=== PATIENT | male | born 1945 | race Caucasian/White ===

== ENCOUNTER → 2018-01-26 | Outpatient (CLI) | payer OTHER ==
[2018-01-26 11:39] LABS: Blood Urea Nitrogen 10 mg/dL (9-20)
--- NOTE | 2018-01-26 14:34 | CT ---
EXAMINATION TYPE: CT chest abdomen w con DATE OF EXAM: 01/26/2018 COMPARISON: NONE HISTORY: Pancreatic cancer. CT DLP: 1750 mGycm. Automated Exposure Control for Dose Reduction was Utilized. CONTRAST: CT scan of the thorax, abdomen and pelvis is performed with IV Contrast, patient injected with 125 mL of Isovue 370. FINDINGS: LUNGS: The lungs are grossly clear, there is no concerning parenchymal mass or nodule identified. Mi nimal dependent atelectatic changes are present. There is no pleural effusion or pneumothorax seen. The tracheobronchial tree is patent. MEDIASTINUM: There are no greater than 1 cm hilar or mediastinal lymph nodes. No pericardial effusi on is seen. OTHER: Aorta is not aneurysmal but shows atheromatous change.. LIVER/GB: There is pneumobilia present. Liver shows low attenuation possibly due to hepatic steatosis , the liver is enlarged. There is a biliary stent present distally within the common bile duct extend ing into the small bowel which is patent. There is ill-defined increased attenuation present along th e distribution of the proper and common bile ducts which is indeterminate. PANCREAS: Distal pancreas is atrophic, biliary stent is present centrally. There is heterogeneous den sity to the head of pancreas. SPLEEN: No significant abnormality is seen. ADRENALS: No significant abnormality is seen. KIDNEYS: No significant abnormality is seen. BOWEL: No significant abnormality is seen. LYMPH NODES: No greater than 1cm abdominal or pelvic lymph nodes are appreciated. OSSEOUS STRUCTURES: Degenerative disc changes in the lumbar spine. OTHER: No significant additional abnormality is seen. IMPRESSION: Findings compatible with patient's history of pancreatic carcinoma as described. Hepatome michael, hepatic steatosis. Ill-defined density at the level of the prashanth is indeterminate.
== END | disposition home or self-care (01) ==
LOC: RADCTMAIN 10:53
PROVIDERS: ATTEND Radiology Radiation Oncology
DX: Z08 Encounter for follow-up examination after completed treatment for malignant neoplasm (principal); K76.0 Fatty (change of) liver, not elsewhere classified; R16.0 Hepatomegaly, not elsewhere classified; Z85.07 Personal history of malignant neoplasm of pancreas
CPT/HCPCS: 82565; 84520; 71260; 74160; 36415; Q9967

== ENCOUNTER → 2018-03-05 | Outpatient (CLI) | payer OTHER ==
--- NOTE | 2018-03-05 13:30 | MR ---
MRI left hip HISTORY: Left foot drop, weakness, left hip pain Multiplanar multisequence imaging obtained through the pelvis with small [id number] imaging throug h the left hip Spermatic cord on the right appears somewhat more prominent and shows some associated fluid signal, t here is a right-sided hydrocele. Marginal spurring is present within the femoral heads. There is grade 3 to grade IV chondromalacia no manolo within the left hip. Geode formation present within the acetabular roof. No definite labral tear. Minimal joint fluid is present. Small cystic focus present in the right femoral head also represent a geode. Degenerative disc change s are noted in the lumbar spine. Some probable reactive marrow signal change present at the sacroiliac joints. Heterogeneous appearanc e of the prostate is noted. Trabeculated pattern within the urinary bladder could be due to chronic o utlet obstruction nor lack of distention. IMPRESSION: Osteoarthritis. Additional findings above.
--- NOTE | 2018-03-05 14:48 | MR ---
EXAMINATION TYPE: MR lumbar spine wo/w con DATE OF EXAM: 03/05/2018 COMPARISON: CT chest and abdomen January 26, 2018. HISTORY: Weakness and left foot drop per order. Back pain for years causing pain into right foot per patient. TECHNIQUE: Multiplanar, multisequence images of the lumbar spine is performed without and with IV contrast, util izing 7.5 mL intravenous Gadavist FINDINGS: Hypoplastic bilateral T12 ribs noted on comparison CT. Sagittal images of the lumbar spine show vertebral body heights to appear satisfactory. There is grade 1 retrolisthesis of L4 on L5. Ther e is multilevel disc desiccation. There is fairly moderate disc space narrowing most prominent poste riorly L4-L5 level. There is additional mild multilevel disc space narrowing. Sagittal images show mu ltifocal posterior disc herniations effacing anterior thecal sac throughout the lumbar spine with rel ative sparing of L5-S1 level. The conus medullaris is normal in position and signal ending at T12-L1 disc space. There is heterogeneous increased T1 and T2 signal in the visualized sacrum. No suspicious postcontrast enhancement is seen. There is fairly moderate multilevel anterior spurring redemonstrat ed. Axial images at the T12-L1 level shows mild to moderate broad disc bulge mildly effacing anterior the joel sac on axial image 28. Bilateral neural foramina are patent. Axial images at the L1-L2 level show mild broad disc bulge minimally effacing anterior thecal sac, bi lateral neural foramina are patent. Axial images at the L2-L3 level show mild to moderate broad disc bulge effacing anterior thecal sac o n axial image 18. There are mild facet degenerative changes seen bilaterally. Bilateral neural forami na are patent. Axial images at the L3-L4 level show broad-based posterior disc protrusion mildly effacing anterior t hecal sac. Bilateral neural foramina are patent. Axial images at L4-L5 level show moderate facet degenerative changes and ligament flavum hypertrophy along with spondylolisthesis and broad disc bulge. Most prominent spinal canal effacement or stenosis is seen at this level on axial image 8. There is moderate right and severe left neural foraminal hiwot rowing at this level identified. Severe left-sided neural foraminal narrowing is best seen sagittal i mage 3. Encroachment on exiting L4 nerve is felt present. Axial images at the L5-S1 level show advanced facet degenerative changes bilaterally. Spinal canal is small with prominence of surrounding epidural fat. There is mild to moderate left-sided neural yazmin inal narrowing and mild right-sided neural foraminal narrowing noted. No suspicious retroperitoneal findings are seen. IMPRESSION: Multilevel degenerative changes as detailed above. Attention to L4-L5 level where spondyl olisthesis and degenerative changes cause most prominent spinal canal effacement or stenosis and sev ere left-sided neural foraminal narrowing with suspected encroachment on left L4 nerve.
== END | disposition home or self-care (01) ==
LOC: RADMRIMAIN 10:12
PROVIDERS: ATTEND Internal Medicine Hematology & Oncology
DX: M43.16 Spondylolisthesis, lumbar region (principal); M47.817 Spondylosis without myelopathy or radiculopathy, lumbosacral region; M16.12 Unilateral primary osteoarthritis, left hip; M94.252 Chondromalacia, left hip
CPT/HCPCS: 72158; 73721; A9581

== ENCOUNTER → 2018-03-20 | Outpatient (CLI) | payer OTHER ==
--- NOTE | 2018-03-21 08:08 | ECHOF ---
Referral Reason:Activity Intolerance Z73.6 MEASUREMENTS -------- HEIGHT: 175.3 cm WEIGHT: 74.8 kg BP: IVSd: 1.0 cm (0.6 - 1.1) LVIDd: 3.4 cm (3.9 - 5.3) LVPWd: 1.6 cm (0.6 - 1.1) IVSs: 1.5 cm LVIDs: 1.7 cm LVPWs: 1.7 cm Ao Diam: 2.9 cm (2.0 - 3.7) AV Cusp: 1.7 cm (1.5 - 2.6) LA Diam: 3.8 cm (2.7 - 3.8) MV EXCURSION: 8.330 mm (> 18.000) MV EF SLOPE: 36 mm/s (70 - 150) EPSS: 1.0 cm MV E Emmanuel: 0.60 m/s MV DecT: 239 ms MV A Emmanuel: 0.91 m/s MV E/A Ratio: 0.66 RAP: 5.00 mmHg RVSP: 12.14 mmHg FINDINGS -------- Sinus rhythm. This was a technically good study. The left ventricular size is normal. There is mild concentric left ventricular hypertrophy. Overa ll left ventricular systolic function is normal with, an EF between 55 - 60 %. The right ventricle is normal in size. The left atrium is normal in size. The right atrium is normal in size. The aortic valve is trileaflet, and appears structurally normal. No aortic stenosis or regurgitation. The mitral valve leaflets are mildly thickened. There is trace mitral regurgitation. Trace tricuspid regurgitation present. Right ventricular systolic pressure is normal at < 35 mmHg. The right ventricular systolic pressure, as measured by Doppler, is 12.14mmHg. There is no pulmonic regurgitation present. The aortic root size is normal. There is no pericardial effusion. CONCLUSIONS -------- 1. Sinus rhythm. 2. This was a technically good study. 3. The left ventricular size is normal. 4. There is mild concentric left ventricular hypertrophy. 5. Overall left ventricular systolic function is normal with, an EF between 55 - 60 %. 6. The left atrium is normal in size. 7. The aortic valve is trileaflet, and appears structurally normal. No aortic stenosis or regurgitati on. 8. There is trace mitral regurgitation. 9. Trace tricuspid regurgitation present. 10. Right ventricular systolic pressure is normal at < 35 mmHg. 11. There is no pulmonic regurgitation present. 12. The aortic root size is normal. 13. There is no pericardial effusion. ROD FILLER: Antonia Vidales RDCS
== END | disposition home or self-care (01) ==
LOC: RADECHMAIN 12:58
PROVIDERS: ATTEND Internal Medicine Hematology & Oncology
DX: I51.7 Cardiomegaly (principal); Z73.6 Limitation of activities due to disability
CPT/HCPCS: 93306

== ENCOUNTER → 2018-04-01 | Outpatient (CLI) | payer OTHER ==
--- NOTE | 2018-04-02 17:54 | CT ---
EXAMINATION TYPE: CT ChestAbdPelvis w con DATE OF EXAM: 04/01/2018 INDICATION: Pancreatic neoplasm COMPARISON: 01/26/2018 CT DLP: 1031 mGycm CONTRAST: 100 mL Isovue-300. TECHNIQUE: Axial images at 5 mm thick sections. Reconstructed images in the coronal plane. Delayed images through the kidneys. FINDINGS: CT CHEST: Portion of the thyroid visualized is normal. No suspicious lung nodules or focal infiltrates are present. No enlarged mediastinal or hilar adenopathy is evident. The ascending aorta diameter at the level of the main pulmonary artery is 3.3 cm. The main pulmonary artery diameter at the bifurcation is 2.[address] ABDOMEN: Liver: There is moderate diminished signal throughout the liver compatible with a infiltration. Could be related to chemotherapy. There are some anterior preservation of normal density liver. There is w ithin the biliary tree. Spleen: Normal Pancreas: There is a stent extending from the duodenum through the head of the pancreas to the common bile duct. Pancreatic duct is prominent. The pancreas appears atrophic. There is some hypodensity ad jacent to the stent within the head of the pancreas. This may reflect underlying neoplasm. The appear ance suggests some increasing hypodensity within the uncinate process region compared to previous. Adrenal glands: The adrenal glands are normal. Gallbladder: Decompressed with some air present. Kidneys: No masses are evident. No hydronephrosis is present. No cysts are present. Delayed images were obtained through the kidneys, which remain unremarkable. Aorta: Vascular calcification is within the aorta. Inferior vena cava: Normal. CT PELVIS: Loops of bowel within the abdomen and pelvis are normal. Study is without oral contrast limiting evaluation. Appendix: Normal as visualized. Urinary bladder: Decompressed with some limitation Genitourinary structures: Prostate contains calcification. Osseous structures: There is a sclerotic lesion within the lateral right pubic ramus. Series 3 image 301B bone island. Degenerative changes are noted at the bilateral hips right more so than left. Facet degenerative changes are within the lower lumbar spine. IMPRESSIONS: 1. The pancreas may be slightly greater at the uncinate process and low density. Some extension of ne oplasm be considered. 2. Diminished density within the liver compared to the previous examination there may be some focal s paring present.
== END | disposition home or self-care (01) ==
LOC: RADCTMAIN 12:56
DX: C25.3 Malignant neoplasm of pancreatic duct (principal); Z88.8 Allergy status to other drugs, medicaments and biological substances; Z88.6 Allergy status to analgesic agent
CPT/HCPCS: 71260; 74177; Q9967

== ENCOUNTER → 2018-07-06 | Outpatient (CLI) | payer OTHER ==
--- NOTE | 2018-07-06 13:09 | FL ---
Modified barium swallow EXAMINATION TYPE: FL barium swallow w video DATE OF EXAM: 07/06/2018 COMPARISON: NONE HISTORY: Dysphagia. The patient was evaluated in the lateral projection during real-time fluoroscopy, during ingestion of barium mixed with solids and liquids. No aspiration or laryngeal penetration. See report from [facility]. 1 minute 11 seconds fluoroscopy time. No intraoperative images.
== END | disposition home or self-care (01) ==
LOC: RADFLMAIN 11:27
PROVIDERS: ATTEND Otolaryngology
DX: R13.10 Dysphagia, unspecified (principal); R49.0 Dysphonia
CPT/HCPCS: 74230

== ENCOUNTER → 2018-07-29 | Outpatient (CLI) | payer OTHER ==
--- NOTE | 2018-07-29 09:48 | XR ---
EXAMINATION TYPE: XR chest 2V DATE OF EXAM: 07/29/2018 COMPARISON: None HISTORY: 72-year-old male with shortness of breath TECHNIQUE: Frontal and lateral views FINDINGS: Heart upper limits of normal in size. Mild atherosclerotic arch calcifications with mild tortuosity o f the thoracic aorta. There is strandy atelectasis in the lower lungs. No consolidation or pleural ef fusion. IMPRESSION: Some strandy areas of atelectasis and a slightly tortuous thoracic aorta. No acute process seen.
== END | disposition home or self-care (01) ==
LOC: RADXRMAIN 09:25
PROVIDERS: ATTEND Internal Medicine Hematology & Oncology
DX: J98.11 Atelectasis (principal); I77.89 Other specified disorders of arteries and arterioles; C25.0 Malignant neoplasm of head of pancreas; G60.8 Other hereditary and idiopathic neuropathies; Z71.3 Dietary counseling and surveillance
CPT/HCPCS: 71046

== ENCOUNTER → 2018-07-30 | Outpatient (CLI) | payer OTHER ==
--- NOTE | 2018-07-30 11:48 | CT ---
EXAMINATION TYPE: CT sinus wo con DATE OF EXAM: 07/30/2018 COMPARISON: None HISTORY: congestion and frequent infections for 2-[address] DLP: 575 mGycm. Automated Exposure Control for Dose Reduction was Utilized. TECHNIQUE: CT scan of the sinuses is performed without contrast, axial images are obtained, coronal r eformatted images are also reviewed. FINDINGS: There is mild mucosal thickening involving the maxillary sinuses and ethmoid air cells. The re is no air-fluid level. Ostiomeatal complex patent bilaterally. There is a slight nasal septal deviation. Atherosclerotic change of the aorta.. Visualized portion of mastoid air cells show no abnormal opacification. The globes are intact bilate rally. IMPRESSION: 1. Findings are compatible with mild chronic sinusitis. 2. Slight nasal septal deviation
== END | disposition home or self-care (01) ==
LOC: RADCTMAIN 11:12
PROVIDERS: ATTEND Otolaryngology
DX: J34.2 Deviated nasal septum (principal); J32.9 Chronic sinusitis, unspecified
CPT/HCPCS: 70486

== ENCOUNTER → 2018-08-12 | Outpatient (CLI) | payer OTHER ==
--- NOTE | 2018-08-12 14:30 | US ---
EXAMINATION TYPE: US venous doppler duplex LE LT DATE OF EXAM: 08/12/2018 1:58 PM COMPARISON: NONE CLINICAL HISTORY: M79.662 R22.42 Pain swelling Left lower limb. Left ankle swelling. Patient states being on blood thinners. No hx of blood clots. No surgeries. On chemo- pancreatic cancer. SIDE PERFORMED: Left TECHNIQUE: The lower extremity deep venous system is examined utilizing real time linear array sonog charles with graded compression, doppler sonography and color-flow sonography. VESSELS IMAGED: External Iliac Vein (EIV) Common Femoral Vein Deep Femoral Vein Greater Saphenous Vein * Femoral Vein Popliteal Vein Small Saphenous Vein * Proximal Calf Veins (* superficial vessels) Left Leg: Appears POSITIVE for DVT in left CFV, nonoccluding with some visual internal echoes. Appe ars POSITIVE for SVT in GSV. IMPRESSION: 1. Focal thrombus within the proximal left common femoral vein compatible with deep venous thrombosis . 2. Note is made of superficial venous thrombosis within the left greater saphenous vein.
[2018-08-12 15:20] LABS: Blood Urea Nitrogen 8 mg/dL (9-20)
--- NOTE | 2018-08-12 16:35 | CT ---
EXAMINATION TYPE: CT angio chest DATE OF EXAM: 08/12/2018 COMPARISON: CT April 01, 2018 HISTORY: Shortness of breath. History of pancreatic cancer. CT DLP: 232.6 mGycm. Automated Exposure Control for Dose Reduction was Utilized. CONTRAST: CTA scan of the thorax is performed with IV Contrast, patient injected with 53ml mL of Isovue 370, pu lmonary embolism protocol. MIP Images are created on CT scanner and reviewed. FINDINGS: LUNGS: There are tiny bilateral pleural effusions. No pneumothorax is seen bilaterally. No suspiciou s nodules or masses are present. No suspicious consolidation is seen The tracheobronchial tree is pat ent. MEDIASTINUM: There is satisfactory enhancement of the pulmonary artery and its branches, there is no CT evidence for pulmonary embolism. There are no greater than 1 cm hilar or mediastinal lymph nodes. No cardiomegaly or pericardial effusion is seen. There is atherosclerotic and ectatic thoracic aor ta redemonstrated. OTHER: Liver is markedly hypodense consistent with diffuse fatty infiltration. Pneumobilia is redemon strated. Cholecystectomy clips are again seen. There are new surgical changes epigastric region noted . There is exaggerated thoracic kyphosis with multilevel spurring seen. IMPRESSION: No CT evidence for acute pulmonary embolism. New tiny bilateral pleural effusions without suspicious focal infiltrate.
--- NOTE | 2018-08-12 16:36 | US ---
EXAMINATION TYPE: US guide vascular access DATE OF EXAM: 08/12/2018 HISTORY: Needs IV access for diagnostic CTA, or shortness of breath, multiple failed intravenous acce ss attempts PROCEDURE: Initial failed attempt at ultrasound-guided venipuncture of the left basilic vein. Maximal barrier technique utilized. The skin overlying the left brachial vein was localized with ult rasound and the vein was noted to be compressible and patent by ultrasound and ultrasound image was o btained and submitted on patient's chart. Under direct ultrasound guidance a 20-gauge Angiocath was advanced into the vein and fixed in place. Catheter was aspirated and flushed with sterile saline. Hemostasis achieved. Catheter fixed in place. No immediate complication. IMPRESSION: Ultrasound-guided venipuncture, this procedure performed by the undersigned.
== END | disposition home or self-care (01) ==
LOC: RADUSWWP 13:24
PROVIDERS: ATTEND Internal Medicine Hematology & Oncology
DX: J90 Pleural effusion, not elsewhere classified (principal); I82.812 Embolism and thrombosis of superficial veins of left lower extremity; I82.412 Acute embolism and thrombosis of left femoral vein; R00.0 Tachycardia, unspecified
CPT/HCPCS: 82565; 84520; 76937; 93971; 71275; 36415; Q9967

== ENCOUNTER 2018-08-21 10:01 | Inpatient (IN) | payer OTHER, MEDICARE ==
[2018-08-21] MEDS ORDERED: SODIUM CHLORIDE 0.9% 1,000 ML IV STA (10:41)
--- NOTE | 2018-08-21 10:42 | ED ---
General Adult HPI - General Chief complaint: Recheck/Abnormal Lab/Rx Stated complaint: High BP/racing heart-sent by Dr. Velasco Source: patient Mode of arrival: wheelchair Limitations: no limitations - Related Data Home Medications Medication Instructions Recorded Confirmed Allopurinol [Zyloprim] 300 mg PO DAILY 08/21/18 08/21/18 Apixaban [Eliquis] 5 mg PO BID 08/21/18 08/21/18 Cefuroxime [Ceftin] 250 mg PO BID 08/21/18 08/21/18 Creon 10,000 E.C. 1 cap PO AC-SUPPER 08/21/18 08/21/18 Finasteride [Proscar] 5 mg PO DAILY 08/21/18 08/21/18 Gabapentin [Neurontin] 100 mg PO BID 08/21/18 08/21/18 Ibuprofen [Motrin] 600 mg PO TID PRN 08/21/18 08/21/18 Metoprolol Tartrate 25 mg PO BID 08/21/18 08/21/18 Pantoprazole [Protonix] 40 mg PO DAILY 08/21/18 08/21/18 Ranitidine HCl 150 mg PO HS 08/21/18 08/21/18 Sildenafil Citrate [Viagra] 100 mg PO ONCE 08/21/18 08/21/18 Terazosin [Hytrin] 6 mg PO HS 08/21/18 08/21/18 Allergies Allergy/AdvReac Type Severity Reaction Status Date / Time No Known Allergies Allergy Verified 08/21/18 10:45 Review of Systems ROS Statement: Those systems with pertinent positive or pertinent negative responses have been documented in the HPI. ROS Other: All systems not noted in ROS Statement are negative. Past Medical History Past Medical History: Cancer, Hypertension Additional Past Medical History / Comment(s): PANCREATIC CANCER History of Any Multi-Drug Resistant Organisms: None Reported Additional Past Surgical History / Comment(s): WHIPPLE PROCEDURE Past Psychological History: No Psychological Hx Reported Smoking Status: Never smoker Past Alcohol Use History: None Reported Past Drug Use History: None Reported General Exam Limitations: no limitations Course Vital Signs 08/21/18 08/21/18 08/21/18 10:18 10:43 11:00 Temperature 98.3 F Pulse Rate 118 H Respiratory 18 11 L Rate Blood Pressure 91/53 108/74 O2 Sat by Pulse 100 91 L 100 Oximetry 08/21/18 11:20 Temperature Pulse Rate 94 Respiratory 21 Rate Blood Pressure 116/64 O2 Sat by Pulse 100 Oximetry Medical Decision Making - Medical Decision Making Dictation was produced using [employer] dictation software. please excuse any grammatical, word or spelling errors. Chief Complaint: 72-year-old male with history of pancreatic cancer status post chemotherapy presents instruction from oncologist to the emergency department. History of Present Illness: Patient reports that he was told to come here from his oncologist office. He had completed chemotherapy last week. Patient had labs performed outpatient with concern for cervicitis/sepsis. Patient does not have any overt symptoms of infection this time. Patient also has been having low hemoglobin counts done outpatient. Patient reports that oncologist want to give him blood transfusion last week however he did not receive it. The ROS documented in this emergency department record has been reviewed and confirmed by me. Those systems with pertinent positive or negative responses have been documented in the HPI. All other systems are other negative and/or noncontributory. PHYSICAL EXAM: General Impression: Alert and oriented x3, not in acute distress, pale HEENT: Normocephalic atraumatic, extra-ocular movements intact, pupils equal and reactive to light bilaterally, mucous membranes dry Cardiovascular: Heart regular rate and rhythm, S1&S2 audible, no murmurs, rubs or gallops Chest: Lungs clear to auscultation bilaterally, no rhonchi, no wheeze, no rales Abdomen: Bowel sounds present, abdomen soft, non-tender, non-distended, no organomegaly Musculoskeletal: Pulses present and equal in all extremities, no peripheral edema Motor: Power 5/5 bilaterally, no focal deficits noted Neurological: CN II-XII grossly intact, no focal motor or sensory deficits noted Skin: Intact with no visualized rashes Psych: Normal affect and mood ED course: 72-year-old male presents discharged from oncologist come to the emergency department for SIRS/sepsis and low hemoglobin. Signs upon arrival shows heart rate of 118, blood pressure 91/53. Laboratory evaluation obtained. WBC of 0.9, hemoglobin of 6.3. Platelets of 63. This is consistent with pancytopenia. Coag panel unremarkable. Metabolic panel shows lactic acidosis of 3.1. No elevation of renal markers. Influenza negative. Chest x-ray unremarkable. Patient given 1 unit transfusion of red blood cells. Patient started on broad-spectrum antibiotics. Patient be admitted for further monitoring. Repeat vital signs were obtained with improvement after intravenous fluid administration. Patient stable for general medical floor. Urine studies are pending. EKG interpretation: Ventricular rate 150, sinus tachycardia, CO interval 140, Q 70, QTc 431. No CO prolongation, no QTC prolongation, no ST or T-wave changes noted. . Overall, this EKG is unremarkable - Lab Data Result diagrams: 08/21/18 11:10 08/21/18 11:10 Lab Results 08/21/18 08/21/18 08/21/18 Range/Units 10:51 11:10 11:10 WBC 0.9 L* (3.8-10.6) k/uL RBC 2.16 L (4.30-5.90) m/uL Hgb 6.3 L* (13.0-17.5) gm/dL Hct 20.0 L (39.0-53.0) % MCV 92.2 (80.0-100.0) fL MCH 29.0 (25.0-35.0) pg MCHC 31.4 (31.0-37.0) g/dL RDW 20.0 H (11.5-15.5) % Plt Count 63 L (150-450) k/uL Toxic Granulation Present Hypochromasia Moderate Poikilocytosis (manual Present Anisocytosis Moderate Macrocytosis Slight PT (9.0-12.0) sec INR (<1.2) Sodium 133 L (137-145) mmol/L Potassium 4.1 (3.5-5.1) mmol/L Chloride 106 (98-107) mmol/L Carbon Dioxide 20 L (22-30) mmol/L Anion Gap 7 mmol/L BUN 7 L (9-20) mg/dL Creatinine 0.50 L (0.66-1.25) mg/dL Est GFR (CKD-EPI)AfAm >90 (>60 ml/min/1.73 sqM) Est GFR (CKD-EPI)NonAf >90 (>60 ml/min/1.73 sqM) Glucose 130 H (74-99) mg/dL Plasma Lactic Acid Jori (0.7-2.0) mmol/L Calcium 7.1 L (8.4-10.2) mg/dL Magnesium 2.0 (1.6-2.3) mg/dL Troponin I (0.000-0.034) ng/mL Influenza Type A RNA Not Detected (Not Detectd) Influenza Type B (PCR) Not Detected (Not Detectd) 08/21/18 08/21/18 08/21/18 Range/Units 11:10 11:10 11:10 WBC (3.8-10.6) k/uL RBC (4.30-5.90) m/uL Hgb (13.0-17.5) gm/dL Hct (39.0-53.0) % MCV (80.0-100.0) fL MCH (25.0-35.0) pg MCHC (31.0-37.0) g/dL RDW (11.5-15.5) % Plt Count (150-450) k/uL Toxic Granulation Hypochromasia Poikilocytosis (manual Anisocytosis Macrocytosis PT 11.8 (9.0-12.0) sec INR 1.1 (<1.2) Sodium (137-145) mmol/L Potassium (3.5-5.1) mmol/L Chloride (98-107) mmol/L Carbon Dioxide (22-30) mmol/L Anion Gap mmol/L BUN (9-20) mg/dL Creatinine (0.66-1.25) mg/dL Est GFR (CKD-EPI)AfAm (>60 ml/min/1.73 sqM) Est GFR (CKD-EPI)NonAf (>60 ml/min/1.73 sqM) Glucose (74-99) mg/dL Plasma Lactic Acid Jori 3.1 H* (0.7-2.0) mmol/L Calcium (8.4-10.2) mg/dL Magnesium (1.6-2.3) mg/dL Troponin I <0.012 (0.000-0.034) ng/mL Influenza Type A RNA (Not Detectd) Influenza Type B (PCR) (Not Detectd) Disposition Clinical Impression: SIRS (systemic inflammatory response syndrome) Disposition: ADMITTED IP TO THIS HOSP Condition: Fair Referrals: [facility],Clinic [Primary Care Provider] - 1-2 days Decision Time: 13:19
[2018-08-21 11:53] LABS: Anion Gap 7 mmol/L; Blood Urea Nitrogen 7 mg/dL (9-20); Calcium 7.1 mg/dL (8.4-10.2); Carbon Dioxide 20 mmol/L (22-30); Chloride 106 mmol/L (98-107); Glucose 130 mg/dL (74-99); Potassium 4.1 mmol/L (3.5-5.1); Sodium 133 mmol/L (137-145)
[2018-08-21 12:02] LABS: INR 1.1 (<1.2); Prothrombin Time 11.8 sec (9.0-12.0)
--- NOTE | 2018-08-21 12:02 | XR ---
EXAMINATION TYPE: XR chest 2V DATE OF EXAM: 08/21/2018 COMPARISON: 07/29/2018 HISTORY: Shortness of breath TECHNIQUE: Frontal and lateral views of the chest are obtained. FINDINGS: Scattered senescent parenchymal changes noted. Hyperinflation compatible with COPD. No evidence for infiltrate. No evidence for atelectasis. Heart size is stable. Mediastinal structures are stable and grossly unremarkable. No evidence for hilar prominence. Degenerative changes dorsal spine. IMPRESSION: 1. No evidence for acute pulmonary disease.
[2018-08-21] MEDS ORDERED: SODIUM CHLORIDE 0.9% 500 ML IV STA (12:05)
[2018-08-21 12:08] LABS: Anisocytosis Moderate; Hypochromasia Moderate; MCHC 31.4 g/dL (31.0-37.0); MCV 92.2 fL (80.0-100.0); Macrocytosis Slight; Mean Platelet Volume 8.9; Platelet Count 63 k/uL (150-450); RBC 2.16 m/uL (4.30-5.90)
[2018-08-21] MEDS ORDERED: CEFEPIME 2 GM in SODIUM CHLORIDE 0.9% 50 ML IVPB STA (12:08)
[2018-08-21 12:17] LABS: HGB 6.3 gm/dL (13.0-17.5); WBC 0.9 k/uL (3.8-10.6)
[2018-08-21] MEDS ORDERED: VANCOMYCIN IV PER PHARMACY 1 EACH MISC MISCELLANE PRN (12:18)
[2018-08-21] MEDS ORDERED: VANCOMYCIN 1,500 MG in SODIUM CHLORIDE 0.9% 250 ML IVPB ONE (12:30)
[2018-08-21 13:03] LABS: Poikilocytosis (M) Present
[2018-08-21 13:04] LABS: Toxic Granulation Present
[2018-08-21] MEDS ORDERED: NALOXONE 0.4 MG/ML 1 ML VIAL IV PRN (13:15)
[2018-08-21] MEDS ORDERED: ACETAMINOPHEN TAB 325 MG TAB PO PRN (13:15)
[2018-08-21 14:12] LABS: Appearance,Urine Clear (Clear); Bilirubin,Urine Negative (Negative); Blood,Urine Negative (Negative); Color,Urine Yellow; Glucose,Urine (UA) Negative (Negative); Ketones,Urine Negative (Negative); Leukocyte Esterase,Urine Negative (Negative); Nitrite,Urine Negative (Negative); PH, Urine 6.5 (5.0-8.0); Protein,Urine Negative (Negative); Specific Gravity,Urine 1.004 (1.001-1.035); Urobilinogen,Urine <2.0 mg/dL (<2.0)
--- NOTE | 2018-08-21 16:05 | P.CONS ---
<Krista,Brandin - Last Filed: 08/21/18 17:43> Medications and Allergies Home Medications Medication Instructions Recorded Confirmed Type Allopurinol [Zyloprim] 300 mg PO DAILY 08/21/18 08/21/18 History Apixaban [Eliquis] 5 mg PO BID 08/21/18 08/21/18 History Cefuroxime [Ceftin] 250 mg PO BID 08/21/18 08/21/18 History Creon 10,000 E.C. 1 cap PO AC-SUPPER 08/21/18 08/21/18 History Finasteride [Proscar] 5 mg PO DAILY 08/21/18 08/21/18 History Gabapentin [Neurontin] 100 mg PO BID 08/21/18 08/21/18 History Ibuprofen [Motrin] 600 mg PO TID PRN 08/21/18 08/21/18 History Metoprolol Tartrate 25 mg PO BID 08/21/18 08/21/18 History Pantoprazole [Protonix] 40 mg PO DAILY 08/21/18 08/21/18 History Ranitidine HCl 150 mg PO HS 08/21/18 08/21/18 History Sildenafil Citrate [Viagra] 100 mg PO ONCE 08/21/18 08/21/18 History Terazosin [Hytrin] 6 mg PO HS 08/21/18 08/21/18 History Allergies Allergy/AdvReac Type Severity Reaction Status Date / Time No Known Allergies Allergy Verified 08/21/18 10:45 Physical Exam Vitals: Vital Signs Temp Pulse Resp BP Pulse Ox 08/21/18 17:00 98.6 F 97 18 138/66 100 08/21/18 16:14 98.3 F 96 17 148/72 100 08/21/18 15:44 98.0 F 94 17 133/72 100 08/21/18 15:34 98.4 F 97 18 131/67 100 08/21/18 15:13 98.2 F 101 H 18 126/67 100 08/21/18 14:30 93 17 131/69 100 08/21/18 14:00 96 16 140/64 100 08/21/18 13:30 94 18 140/64 100 08/21/18 13:00 93 15 140/59 100 08/21/18 12:30 87 17 114/61 100 08/21/18 12:00 95 16 114/62 100 08/21/18 11:30 98 16 112/60 100 08/21/18 11:20 94 21 116/64 100 08/21/18 11:00 11 L 108/74 100 08/21/18 10:43 91 L 08/21/18 10:18 98.3 F 118 H 18 91/53 100 Intake and Output 08/21/18 08/21/18 08/21/18 06:59 14:59 22:59 Intake Total 0 Balance 0 Intake: Blood Product 0 Rc As-1 Unit 0 [id number] Other: Weight 61.462 kg Results CBC & Chem 7: 08/21/18 11:10 08/21/18 11:10 Labs: Abnormal Lab Results - Last 24 Hours (Table) 08/21/18 08/21/18 08/21/18 Range/Units 11:10 11:10 11:10 WBC 0.9 L* (3.8-10.6) k/uL RBC 2.16 L (4.30-5.90) m/uL Hgb 6.3 L* (13.0-17.5) gm/dL Hct 20.0 L (39.0-53.0) % RDW 20.0 H (11.5-15.5) % Plt Count 63 L (150-450) k/uL Sodium 133 L (137-145) mmol/L Carbon Dioxide 20 L (22-30) mmol/L BUN 7 L (9-20) mg/dL Creatinine 0.50 L (0.66-1.25) mg/dL Glucose 130 H (74-99) mg/dL Plasma Lactic Acid Jori 3.1 H* (0.7-2.0) mmol/L Calcium 7.1 L (8.4-10.2) mg/dL Crossmatch 08/21/18 Range/Units 11:10 WBC (3.8-10.6) k/uL RBC (4.30-5.90) m/uL Hgb (13.0-17.5) gm/dL Hct (39.0-53.0) % RDW (11.5-15.5) % Plt Count (150-450) k/uL Sodium (137-145) mmol/L Carbon Dioxide (22-30) mmol/L BUN (9-20) mg/dL Creatinine (0.66-1.25) mg/dL Glucose (74-99) mg/dL Plasma Lactic Acid Jori (0.7-2.0) mmol/L Calcium (8.4-10.2) mg/dL Crossmatch See Detail <Harleen Blackmon - Last Filed: 08/21/18 18:37> History of Present Illness - Reason for Consult Consult date: 08/21/18 Pancreatic Cancer Requesting physician: Braden Peace - Chief Complaint Sirs/R/O Sepsis - History of Present Illness Patient is a pleasant male who is well known to practice, status post treatment for his pancreatic Carcinoma, cycle 6 abraxane and Gemzar on 08/18/18. He did not receive GCSF. He was diagnosed in August 2017 with Pancreatic Carcinoma and started treatment with Chemotherapy in October. After 3 cycles, he went on to be treated with concurrent radiation and xeloda. He completed that in February of 2018. He then went on to have Surgery at [facility] on 04/28/18, then proceeded with three adjuvant cycles of chemo abraxane and gemzar completed on . On August 12, 2018 he was seen in office with complaints of leg pain and swelling, a lower extremity doppler was completed and revealed DVT. He was sent home with Treatment dosing of Eliquis. The patient was seen in the office on 08/21/18 for a routine visit. He had been complaining of progressive weakness since his chemotherapy. Oral intake had been markedly diminished, especially over the past 2-3 days. He had been having loose bowel movements intermittently. He stated that he felt chilled, but had not noted any definite subjective fevers. No obvious bleeding noted. In the office the patient was found to have SIRS, with heart rate in the 120s, systolic blood pressure in the 80s, along with marked pancytopenia with white cells 1.1, hemoglobin 6.4, and platelets 62. He was therefore sent in to the emergency room, and was admitted for further management, with consult placed. The patient did not receive any Neulasta after his last chemotherapy Review of Systems A 14 point review of systems assessed and completed and all neg except hpi Constitutional: Reports poor appetite, Reports weakness, Reports weight loss Eyes: denies blurred vision, denies pain Ears: deny: decreased hearing, ear discharge, earache, tinnitus Ears, nose, mouth and throat: Denies headache, Denies sore throat Cardiovascular: Reports dyspnea on exertion, Reports rapid heart beat Respiratory: Reports dyspnea Gastrointestinal: Reports diarrhea, Reports loss of appetite Genitourinary: Reports as per HPI Musculoskeletal: Reports muscle weakness Integumentary: Denies pruritus, Denies rash Neurological: Reports weakness Psychiatric: Denies anxiety, Denies depression Endocrine: Reports fatigue, Reports weight change Hematologic/Lymphatic: Reports as per HPI Past Medical History Past Medical History: Cancer, Deep Vein Thrombosis (DVT), Hypertension Additional Past Medical History / Comment(s): PANCREATIC CANCER-most recent chemo tx was 08-18-18,past prostate cancer 12 years ago,squamous cell skin ca ( sx) 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) pt stated "does'nt have gerd was put on rx as preventative" History of Any Multi-Drug Resistant Organisms: None Reported Additional Past Surgical History / Comment(s): WHIPPLE PROCEDURE, 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 Past Anesthesia/Blood Transfusion Reactions: No Reported Reaction Additional Past Anesthesia/Blood Transfusion Reaction / Comm: pt stated has never received any blood transfusion in past Smoking Status: Never smoker - Past Family History Mother Family Medical History: Diabetes Mellitus Additional Family Medical History / Comment(s): gout Father Additional Family Medical History / Comment(s): had TB Physical Exam Vitals: Vital Signs Temp Pulse Resp BP Pulse Ox 08/21/18 15:13 98.2 F 101 H 18 126/67 100 08/21/18 11:20 94 21 116/64 100 08/21/18 11:00 11 L 108/74 100 08/21/18 10:43 91 L 08/21/18 10:18 98.3 F 118 H 18 91/53 100 Intake and Output 08/21/18 08/21/18 08/21/18 06:59 14:59 22:59 Other: Weight 61.462 kg Gen: Alert and oriented x3 Neck Supple, trachea midline no lymphadenopathy Lungs CTA bilateral, no increased effort Heart: Tachy, Regular Abdomen S/ND Ext: Mild Swelling. - Constitutional General appearance: mild distress - EENT Eyes: EOMI, PERRLA ENT: hearing grossly normal, normal oropharynx - Neck Neck: no lymphadenopathy Thyroid: bilateral: normal size - Respiratory Respiratory: bilateral: CTA - Cardiovascular Tachycardia Rhythm: regular Heart sounds: normal: S1, S2 - Gastrointestinal General gastrointestinal: normal bowel sounds, soft - Integumentary Integumentary: normal - Neurologic Neurologic: CNII-XII intact - Musculoskeletal Musculoskeletal: generalized weakness, strength equal bilaterally - Psychiatric Psychiatric: A&O x's 3, appropriate affect Results CBC & Chem 7: 08/21/18 11:10 08/21/18 11:10 Labs: Abnormal Lab Results - Last 24 Hours (Table) 08/21/18 08/21/18 08/21/18 Range/Units 11:10 11:10 11:10 WBC 0.9 L* (3.8-10.6) k/uL RBC 2.16 L (4.30-5.90) m/uL Hgb 6.3 L* (13.0-17.5) gm/dL Hct 20.0 L (39.0-53.0) % RDW 20.0 H (11.5-15.5) % Plt Count 63 L (150-450) k/uL Sodium 133 L (137-145) mmol/L Carbon Dioxide 20 L (22-30) mmol/L BUN 7 L (9-20) mg/dL Creatinine 0.50 L (0.66-1.25) mg/dL Glucose 130 H (74-99) mg/dL Plasma Lactic Acid Jori 3.1 H* (0.7-2.0) mmol/L Calcium 7.1 L (8.4-10.2) mg/dL Crossmatch 08/21/18 Range/Units 11:10 WBC (3.8-10.6) k/uL RBC (4.30-5.90) m/uL Hgb (13.0-17.5) gm/dL Hct (39.0-53.0) % RDW (11.5-15.5) % Plt Count (150-450) k/uL Sodium (137-145) mmol/L Carbon Dioxide (22-30) mmol/L BUN (9-20) mg/dL Creatinine (0.66-1.25) mg/dL Glucose (74-99) mg/dL Plasma Lactic Acid Jori (0.7-2.0) mmol/L Calcium (8.4-10.2) mg/dL Crossmatch See Detail Chest x-ray: report reviewed Assessment and Plan (1) SIRS (systemic inflammatory response syndrome) Narrative/Plan: The patient is presenting with SIRS, with tachycardia, hypotension, and increased respiratory rate. Given his pancytopenia and low WBC, the main concern is for underlying infection causing sepsis. The patient was therefore sent him immediately to the emergency room and the case discussed in detail with the ER physician. He does not have any localizing signs for infection. He did have some upper respiratory symptoms as an outpatient and was on oral antibiotics. These have partially improved. The patient has thus been placed on broad-spectrum antibiotics with vancomycin and cefepime. Cultures have been ordered. Chest x-ray is negative so far. He is also receiving fluid resuscitation. Continue to monitor closely with the adjustment in care as needed Current Visit: Yes Status: Acute Code(s): R65.10 - SIRS OF NON-INFECTIOUS ORIGIN W/O ACUTE ORGAN DYSFUNCTION SNOMED Code(s): 554848599 (2) Pancytopenia due to antineoplastic chemotherapy Narrative/Plan: The patient is presenting with marked pancytopenia, which is much more severe than with prior treatments. This is likely due to the cumulative affect of chemotherapy. His last chemotherapy was on 08/18/18. He will receive 1 unit of blood. Filgrastim has been started. Continue to monitor, and transfuse to keep hemoglobin greater than 7, and platelets greater than 10,000 unless actively bleeding Current Visit: Yes Status: Acute Code(s): D61.810 - ANTINEOPLASTIC CHEMOTHERAPY INDUCED PANCYTOPENIA; T45.1X5A - ADVERSE EFFECT OF ANTINEOPLASTIC AND IMMUNOSUP DRUGS, INIT SNOMED Code(s): 354974968904089 (3) Deep vein thrombosis Narrative/Plan: This was a recent diagnosis and the patient is on Eliquis. There has been a significant drop in his hemoglobin, but this is very unlikely to be due to blood loss. Given drop and other counts this most likely is due to chemotherapy effect. Therefore it is okay to continue anticoagulation as long as the platelet count is above 50,000 Current Visit: Yes Status: Acute Code(s): I82.409 - ACUTE EMBOLISM AND THOMBOS UNSP DEEP VN UNSP LOWER EXTREMITY SNOMED Code(s): 970282290 (4) Cancer of pancreas Narrative/Plan: The patient is status post definitive therapy with neoadjuvant chemotherapy, chemoradiation, surgery and then additional adjuvant chemotherapy. He will be placed on surveillance, after resolution of his acute problems. Current Visit: Yes Status: Acute Code(s): C25.9 - MALIGNANT NEOPLASM OF PANCREAS, UNSPECIFIED SNOMED Code(s): 006363548 Plan: Assessment and Recommendations: 1. Pancytopenia Secondary to recent Chemotherapy: Normocytic Anemia: Hemoglobin 6.3: - He was recently started on eliquis for new DVT LE. This is currently on hold with anemia of 6.3 - Check Iron Studies and confirm no blood loss anemia - Transfuse One unit of PRBC today Thrombocytopenia: Plt 63 - In a safe range as above 50K and as long as no active signs of bleeding ok to restart anticoagulation, may restart with heparin drip and monitor for 24 hours to ensure platlets and hemoglobin to not further drop. Leukopenia - - He also has tachycardia therefore SIRS 2/4 full francis culture work-up - Vancomycin and cefepime initiated - Await final cultures and I have initiated Zarxio while inpatient as last chemotherapy on 08/18/18 2. Pancreatic Adenocarcinoma: Status Post Chemotherapy on 08/18/18 - Diagnosed in August 2017, underwent chemotherapy 3 cycles abraxane and gemzar, then further josesito-adjuvant therapy with concurrent xeloda and radiation, then surgery with clear resection and margins, then adjuvant treatment with three more cycles of gemzar and abraxane. Tolerated fairly well 3. SIRS Criteria 2/4 - As noted above Plan: Discussed in detail with Dr. Elizondo, will await pending labs and monitor. Physician attestation: I have completed the fourth of history and physical dictation and agree with the above dictation by Harleen Blackmon dictated as a scribe
[2018-08-21] MEDS: SODIUM CHLORIDE 0.9% 1,000 ML IV SCH (16:11)
[2018-08-21 18:35] LABS: Reticulocyte % 0.7 % (0.5-2.0)
[2018-08-21] MEDS: FILGRASTIM-SNDZ 480 MCG/0.8 ML SYRINGE SQ SCH (21:48)
[2018-08-21 22:49] LABS: Iron Saturation 60.93 (15.00-50.00)
--- NOTE | 2018-08-21 23:41 | P.HPIM ---
History of Present Illness H&P Date: 08/21/18 Chief Complaint: Pancytopenia and possible sepsis Patient is a 78-year-old male with a known history of pancreatic cancer with recent chemotherapy on 08/18/[address] Velasco's office due to concern for possible infection and also pancytopenia. Patient was initially diagnosed with pancreatic cancer in August 2017. Patient was seen in the clinic on with leg pain and swelling and was diagnosed with left lower extremity DVT and is currently on anticoagulation. Patient went to clinic today for follow-up and was complaining of generalized weakness. Patient was found to have tachycardic tachypneic and was also having subjective fevers. He was also having intermittent loose bowels. Patient was sent to Hospital for possible sepsis and pancytopenia secondary to chemotherapy. WBC 0.9 and hemoglobin 6.3 platelets 63,000 and lactic acid 3.2 on admission Review of Systems Constitutional: Patient does have subjective fevers and chills. Patient does have generalized weakness. Abdomen: Patient denied nausea vomiting and diarrhea and abdominal pain. Cardiovascular: Patient denies any chest pain or short of breath no palpitations. Respiratory: patient denied any cough is from production. No shortness of breath Neurologic: Patient denied any numbness or tingling headache. Musculoskeletal: Patient denies any complaints of joint swelling or deformity. Skin: No rash. No petechia or purpura. Psychiatric: Negative Endocrine: No heat or cold intolerance. No recent weight gain. Genitourinary: No dysuria or hematuria. 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 Past Anesthesia/Blood Transfusion Reactions: No Reported Reaction Additional Past Anesthesia/Blood Transfusion Reaction / Comment(s): pt stated has never received any blood transfusion in past Smoking Status: Never smoker - Past Family History Mother Family Medical History: Diabetes Mellitus Additional Family Medical History / Comment(s): gout Father Additional Family Medical History / Comment(s): had TB Medications and Allergies Home Medications Medication Instructions Recorded Confirmed Type Allopurinol [Zyloprim] 300 mg PO DAILY 08/21/18 08/21/18 History Apixaban [Eliquis] 5 mg PO BID 08/21/18 08/21/18 History Cefuroxime [Ceftin] 250 mg PO BID 08/21/18 08/21/18 History Creon 10,000 E.C. 1 cap PO AC-SUPPER 08/21/18 08/21/18 History Finasteride [Proscar] 5 mg PO DAILY 08/21/18 08/21/18 History Gabapentin [Neurontin] 100 mg PO BID 08/21/18 08/21/18 History Ibuprofen [Motrin] 600 mg PO TID PRN 08/21/18 08/21/18 History Metoprolol Tartrate 25 mg PO BID 08/21/18 08/21/18 History Pantoprazole [Protonix] 40 mg PO DAILY 08/21/18 08/21/18 History Ranitidine HCl 150 mg PO HS 08/21/18 08/21/18 History Sildenafil Citrate [Viagra] 100 mg PO ONCE 08/21/18 08/21/18 History Terazosin [Hytrin] 6 mg PO HS 08/21/18 08/21/18 History Allergies Allergy/AdvReac Type Severity Reaction Status Date / Time No Known Allergies Allergy Verified 08/21/18 10:45 Physical Exam Vitals: Vital Signs Temp Pulse Resp BP Pulse Ox 08/21/18 15:13 98.2 F 101 H 18 126/67 100 08/21/18 11:20 94 21 116/64 100 08/21/18 11:00 11 L 108/74 100 08/21/18 10:43 91 L 08/21/18 10:18 98.3 F 118 H 18 91/53 100 Intake and Output 08/21/18 08/21/18 08/21/18 06:59 14:59 22:59 Other: Weight 61.462 kg PHYSICAL EXAMINATION: Patient is lying in the bed comfortably, no acute distress, awake alert and oriented.. HEENT: Normocephalic. Neck is supple. Pupils reactive. Nostrils clear. Oral cavity is moist. Ears reveal no drainage. Neck reveals no JVD, carotid bruits, or thyromegaly. CHEST EXAMINATION: Trachea is central. Symmetrical expansion. Lung diane clear to auscultation and percussion. CARDIAC: Normal S1, S2 with no gallops. No murmurs ABDOMEN: Soft. Bowel sounds normal. No organomegaly. No abdominal bruits. Extremities: reveal no edema. No clubbing or cyanosis Neurologically awake, alert, oriented x3 with well-coordinated movements. No focal deficits noted Skin: No rash or skin lesions. Psychiatric: Coperative. Nonsuicidal Musculoskeletal: No joint swelling or deformity. Normal range of motion. Results CBC & Chem 7: 08/21/18 11:10 08/21/18 11:10 Labs: Abnormal Lab Results - Last 24 Hours (Table) 08/21/18 08/21/18 08/21/18 Range/Units 11:10 11:10 11:10 WBC 0.9 L* (3.8-10.6) k/uL RBC 2.16 L (4.30-5.90) m/uL Hgb 6.3 L* (13.0-17.5) gm/dL Hct 20.0 L (39.0-53.0) % RDW 20.0 H (11.5-15.5) % Plt Count 63 L (150-450) k/uL Sodium 133 L (137-145) mmol/L Carbon Dioxide 20 L (22-30) mmol/L BUN 7 L (9-20) mg/dL Creatinine 0.50 L (0.66-1.25) mg/dL Glucose 130 H (74-99) mg/dL Plasma Lactic Acid Jori 3.1 H* (0.7-2.0) mmol/L Calcium 7.1 L (8.4-10.2) mg/dL Crossmatch 08/21/18 Range/Units 11:10 WBC (3.8-10.6) k/uL RBC (4.30-5.90) m/uL Hgb (13.0-17.5) gm/dL Hct (39.0-53.0) % RDW (11.5-15.5) % Plt Count (150-450) k/uL Sodium (137-145) mmol/L Carbon Dioxide (22-30) mmol/L BUN (9-20) mg/dL Creatinine (0.66-1.25) mg/dL Glucose (74-99) mg/dL Plasma Lactic Acid Jori (0.7-2.0) mmol/L Calcium (8.4-10.2) mg/dL Crossmatch See Detail Assessment and Plan Assessment: Neutropenic fever SIRS Left lower extremity DVT diagnosed on 08/12/2018. Currently on anticoagulation. Pancytopenia secondary to recent chemotherapy on 08/18/2018 Anemia with hemoglobin 6.3. Patient was transferred with 1 unit PRBC on 2018 Neutropenia and thrombocytopenia Pancreatic a dull carcinoma status post recent chemotherapy DVT prophylaxis. Patient is already on full and accommodation Plan: Patient will be continued on broad-spectrum antibiotics in the form of vancomycin and cefepime. Continue with IV hydration. Monitor CBC. Follow blood culture reports. Stool for C. diff toxin will be sent. Continue to follow closely. Oncology is on board. Further recommendations based on the clinical course. Time with Patient: Greater than 30
[2018-08-22] MEDS: VANCOMYCIN 1,500 MG in SODIUM CHLORIDE 0.9% 250 ML IVPB SCH ×3 (00:53→23:54)
[2018-08-22] MEDS: CEFEPIME 1 GM in SODIUM CHLORIDE 0.9% 50 ML IVPB SCH ×2 (03:03→21:39)
[2018-08-22] MEDS: APIXABAN 5 MG TAB PO SCH ×2 (07:44→21:40)
[2018-08-22] MEDS: GABAPENTIN 100 MG CAP PO SCH ×2 (07:44→21:40)
[2018-08-22] MEDS: PANTOPRAZOLE 40 MG TABLET PO SCH (07:44)
[2018-08-22] MEDS: ALLOPURINOL 300 MG TAB PO SCH (07:44)
[2018-08-22] MEDS: METOPROLOL TARTRATE 25 MG TAB PO SCH ×2 (07:44→21:40)
[2018-08-22] MEDS: FINASTERIDE 5 MG TAB PO SCH (07:53)
[2018-08-22] MEDS: FILGRASTIM-SNDZ 480 MCG/0.8 ML SYRINGE SQ SCH (21:39)
[2018-08-22] MEDS: LIPASE 5,000/PROTEASE 17,000/AMYLASE 24,000 PO SCH (21:39)
[2018-08-22] MEDS: SODIUM CHLORIDE 0.9% 1,000 ML IV SCH ×2 (21:39→23:53)
[2018-08-22] MEDS: DOXAZOSIN 4 MG TAB PO SCH (21:40)
--- NOTE | 2018-08-22 23:36 | P.PN ---
Subjective Progress Note Date: 08/22/18 (Seen this am, late entry due to EMR) Principal diagnosis: SIRS Feeling tired otherwise ok, Started with diarrhea today Objective - Vital Signs Vital signs: Vital Signs Temp 98.4 F 08/22/18 21:00 Pulse 107 H 08/22/18 21:00 Resp 16 08/22/18 21:00 BP 116/53 08/22/18 21:00 Pulse Ox 98 08/22/18 21:00 Intake & Output 08/22/18 08/22/18 08/23/18 06:59 18:59 06:59 Intake Total 250 720 Output Total 2 2 Balance 248 -2 720 Intake: Intake, IV Titration 250 300 Amount Sodium Chloride 0.9% 1, 300 000 ml @ 75 mls/hr IV . [id number] EMILY Rx#:[id number] Vancomycin 1,500 mg In 250 Sodium Chloride 0.9% 250 ml @ 125 mls/hr IVPB Q12H EMILY Rx#:[id number] Oral 420 Output: Urine 2 2 Other: Voiding Method Toilet Toilet # Voids 2 2 2 # Bowel Movements 2 - Labs CBC & Chem 7: 08/23/18 09:51 08/23/18 09:51 Labs: Microbiology - Last 24 Hours (Table) 08/21/18 11:10 Blood Culture - Preliminary Blood No Growth after 24 hours Assessment and Plan (1) SIRS (systemic inflammatory response syndrome) Current Visit: Yes Status: Acute Code(s): R65.10 - SIRS OF NON-INFECTIOUS ORIGIN W/O ACUTE ORGAN DYSFUNCTION SNOMED Code(s): 069485826 (2) Pancytopenia due to antineoplastic chemotherapy Current Visit: Yes Status: Acute Code(s): D61.810 - ANTINEOPLASTIC CHEMOTHERAPY INDUCED PANCYTOPENIA; T45.1X5A - ADVERSE EFFECT OF ANTINEOPLASTIC AND IMMUNOSUP DRUGS, INIT SNOMED Code(s): 798455109693087 (3) Deep vein thrombosis Current Visit: Yes Status: Acute Code(s): I82.409 - ACUTE EMBOLISM AND THOMBOS UNSP DEEP VN UNSP LOWER EXTREMITY SNOMED Code(s): 649524627 (4) Cancer of pancreas Current Visit: Yes Status: Acute Code(s): C25.9 - MALIGNANT NEOPLASM OF PANCREAS, UNSPECIFIED SNOMED Code(s): 707321908 Plan: Assessment and Recommendations: 1. Pancytopenia Secondary to recent Chemotherapy: Normocytic Anemia: improved after transfusion - He was recently started on eliquis for new DVT LE. - Check Iron Studies and confirm no blood loss anemia - Transfuse One unit of PRBC today Thrombocytopenia: Plt 57 - In a safe range as above 50K and as long as no active signs of bleeding ok to restart anticoagulation, may restart with heparin drip and monitor for 24 hours to ensure platlets and hemoglobin to not further drop. Leukopenia - - He also has tachycardia therefore SIRS 2/4 full francis culture work-up - Vancomycin and cefepime initiated - Await final cultures and I have initiated Zarxio while inpatient as last chemotherapy on 08/18/18 2. Pancreatic Adenocarcinoma: Status Post Chemotherapy on 08/18/18 - Diagnosed in August 2017, underwent chemotherapy 3 cycles abraxane and gemzar, then further josesito-adjuvant therapy with concurrent xeloda and radiation, then surgery with clear resection and margins, then adjuvant treatment with three more cycles of gemzar and abraxane. Tolerated fairly well 3. SIRS Criteria 2/4 - As noted above Plan: continue Zarxio, monitor s/s infection, prophyllaxic abx, and supportive transfusions
[2018-08-23 00:56] LABS: Partial Thromboplastin Time 24.8 sec (22.0-30.0)
[2018-08-23 01:00] LABS: INR 1.1 (<1.2)
[2018-08-23] MEDS: CEFEPIME 1 GM in SODIUM CHLORIDE 0.9% 50 ML IVPB SCH ×2 (03:24→13:05)
[2018-08-23 05:40] LABS: ALT 58 U/L (21-72); AST 67 U/L (17-59); Albumin 1.8 g/dL (3.5-5.0); Alkaline Phosphatase 155 U/L (38-126); Anion Gap 4 mmol/L; Blood Urea Nitrogen 5 mg/dL (9-20); Calcium 7.5 mg/dL (8.4-10.2); Carbon Dioxide 20 mmol/L (22-30); Chloride 112 mmol/L (98-107); Glucose 116 mg/dL (74-99); Potassium 4.1 mmol/L (3.5-5.1); Sodium 136 mmol/L (137-145); Total Bilirubin 0.9 mg/dL (0.2-1.3); Total Protein 4.2 g/dL (6.3-8.2)
[2018-08-23 07:45] LABS: Anisocytosis Moderate; HCT 26.4 % (39.0-53.0); HGB 7.5 gm/dL (13.0-17.5); Hypochromasia Marked; MCH 29.6 pg (25.0-35.0); MCHC 28.6 g/dL (31.0-37.0); Macrocytosis Marked; Mean Platelet Volume 11.7; Poikilocytosis Slight; RBC 2.54 m/uL (4.30-5.90); WBC 0.5 k/uL (3.8-10.6)
[2018-08-23 07:46] LABS: MCV 103.6 fL (80.0-100.0); Platelet Count 59 k/uL (150-450)
[2018-08-23] MEDS: PANTOPRAZOLE 40 MG TABLET PO SCH (09:04)
[2018-08-23] MEDS: ALLOPURINOL 300 MG TAB PO SCH (09:04)
[2018-08-23] MEDS: APIXABAN 5 MG TAB PO SCH (09:04)
[2018-08-23] MEDS: METOPROLOL TARTRATE 25 MG TAB PO SCH ×2 (09:04→21:41)
[2018-08-23] MEDS: GABAPENTIN 100 MG CAP PO SCH ×2 (09:04→21:41)
[2018-08-23] MEDS: FINASTERIDE 5 MG TAB PO SCH (09:05)
[2018-08-23 10:38] LABS: Anisocytosis Slight; Hypochromasia Marked; MCH 28.6 pg (25.0-35.0); MCHC 30.3 g/dL (31.0-37.0); Macrocytosis Slight; Mean Platelet Volume 10.4; RBC 2.34 m/uL (4.30-5.90); RDW 19.5 % (11.5-15.5)
[2018-08-23 10:40] LABS: ALT 47 U/L (21-72); AST 52 U/L (17-59); Albumin 1.6 g/dL (3.5-5.0); Alkaline Phosphatase 154 U/L (38-126); Anion Gap 2 mmol/L; Blood Urea Nitrogen 3 mg/dL (9-20); Calcium 7.3 mg/dL (8.4-10.2); Carbon Dioxide 22 mmol/L (22-30); Chloride 112 mmol/L (98-107); Glucose 102 mg/dL (74-99); Potassium 3.6 mmol/L (3.5-5.1); Sodium 136 mmol/L (137-145); Total Bilirubin 0.8 mg/dL (0.2-1.3)
[2018-08-23 10:43] LABS: WBC 0.6 k/uL (3.8-10.6)
[2018-08-23 10:46] LABS: HGB 6.7 gm/dL (13.0-17.5); MCV 94.2 fL (80.0-100.0); Platelet Count 45 k/uL (150-450)
[2018-08-23] MEDS: VANCOMYCIN 1,500 MG in SODIUM CHLORIDE 0.9% 250 ML IVPB SCH (13:08)
[2018-08-23 13:49] LABS: Poikilocytosis (M) Present
--- NOTE | 2018-08-23 16:49 | P.PN ---
Subjective Progress Note Date: 08/23/18 Principal diagnosis: SIRS Feeling tired otherwise ok,Still with Diarrhea, blood counts still low. Hemoglobin 6.7 Objective - Vital Signs Vital signs: Vital Signs Temp 98.0 F 08/23/18 16:26 Pulse 88 08/23/18 16:26 Resp 18 08/23/18 16:26 BP 118/63 08/23/18 16:26 Pulse Ox 98 08/23/18 16:26 Intake & Output 08/22/18 08/23/18 08/23/18 18:59 06:59 18:59 Intake Total 1910 0 Output Total 2 Balance -2 1910 0 Weight 61.462 kg Intake: Intake, IV Titration 1250 Amount Cefepime 1 gm In Sodium 100 Chloride 0.9% 50 ml @ 100 mls/hr IVPB Q12H [facility] Rx# :[id number] Sodium Chloride 0.9% 1, 900 000 ml @ 75 mls/hr IV . [id number] [facility] Rx#:[id number] Vancomycin 1,500 mg In 250 Sodium Chloride 0.9% 250 ml @ 125 mls/hr IVPB Q12H [facility] Rx#:[id number] Oral 660 Blood Product 0 Rc As-1 Unit 0 [id number] Output: Urine 2 Other: Voiding Method Toilet Toilet Toilet # Voids 2 2 3 # Bowel Movements 2 - Exam Gen: Alerta and oriented no acute distrress Neck Supple, no adenopathy Lungs CTA bilat no increased effort Heart: Tachy, Reg Abd Soft, No Tender, Extre Pos Ankle swelling RLE Neuro Non focal - Labs CBC & Chem 7: 08/23/18 09:51 08/23/18 09:51 Labs: Abnormal Lab Results - Last 24 Hours (Table) 08/21/18 08/22/18 08/22/18 Range/Units 11:10 10:40 10:40 WBC 0.5 L* (3.8-10.6) k/uL RBC 2.54 L (4.30-5.90) m/uL Hgb 7.5 L (13.0-17.5) gm/dL Hct 26.4 L (39.0-53.0) % MCV 103.6 H D (80.0-100.0) fL MCHC 28.6 L (31.0-37.0) g/dL RDW 20.0 H (11.5-15.5) % Plt Count 59 L (150-450) k/uL Sodium 136 L (137-145) mmol/L Chloride 112 H (98-107) mmol/L Carbon Dioxide 20 L (22-30) mmol/L BUN 5 L (9-20) mg/dL Creatinine 0.45 L (0.66-1.25) mg/dL Glucose 116 H (74-99) mg/dL Calcium 7.5 L (8.4-10.2) mg/dL AST 67 H (17-59) U/L Alkaline Phosphatase 155 H (38-126) U/L Total Protein 4.2 L (6.3-8.2) g/dL Albumin 1.8 L (3.5-5.0) g/dL Crossmatch See Detail 08/23/18 08/23/18 Range/Units 09:51 09:51 WBC 0.6 L* (3.8-10.6) k/uL RBC 2.34 L (4.30-5.90) m/uL Hgb 6.7 L* (13.0-17.5) gm/dL Hct 22.0 L (39.0-53.0) % MCV (80.0-100.0) fL MCHC 30.3 L (31.0-37.0) g/dL RDW 19.5 H (11.5-15.5) % Plt Count 45 L (150-450) k/uL Sodium 136 L (137-145) mmol/L Chloride 112 H (98-107) mmol/L Carbon Dioxide (22-30) mmol/L BUN 3 L (9-20) mg/dL Creatinine 0.48 L (0.66-1.25) mg/dL Glucose 102 H (74-99) mg/dL Calcium 7.3 L (8.4-10.2) mg/dL AST (17-59) U/L Alkaline Phosphatase 154 H (38-126) U/L Total Protein 4.0 L (6.3-8.2) g/dL Albumin 1.6 L (3.5-5.0) g/dL Crossmatch Microbiology - Last 24 Hours (Table) 08/21/18 11:10 Blood Culture - Preliminary Blood No Growth after 48 hours Assessment and Plan (1) SIRS (systemic inflammatory response syndrome) Current Visit: Yes Status: Acute Code(s): R65.10 - SIRS OF NON-INFECTIOUS ORIGIN W/O ACUTE ORGAN DYSFUNCTION SNOMED Code(s): 452517281 (2) Pancytopenia due to antineoplastic chemotherapy Current Visit: Yes Status: Acute Code(s): D61.810 - ANTINEOPLASTIC CHEMOTHERAPY INDUCED PANCYTOPENIA; T45.1X5A - ADVERSE EFFECT OF ANTINEOPLASTIC AND IMMUNOSUP DRUGS, INIT SNOMED Code(s): 382451023549844 (3) Deep vein thrombosis Current Visit: Yes Status: Acute Code(s): I82.409 - ACUTE EMBOLISM AND THOMBOS UNSP DEEP VN UNSP LOWER EXTREMITY SNOMED Code(s): 972387474 (4) Cancer of pancreas Current Visit: Yes Status: Acute Code(s): C25.9 - MALIGNANT NEOPLASM OF PANCREAS, UNSPECIFIED SNOMED Code(s): 263438075 Plan: Assessment and Recommendations: 1. Pancytopenia Secondary to recent Chemotherapy: Normocytic Anemia: improved after transfusion - He was recently started on eliquis for new DVT LE. - Check Iron Studies and confirm no blood loss anemia - Transfuse One unit of PRBC today Thrombocytopenia: Plt 45 - Hold Eliquis until greater than 50K Leukopenia - - He also has tachycardia therefore SIRS 2/4 full francis culture work-up - Vancomycin and cefepime initiated - Await final cultures and I have initiated Zarxio while inpatient as last chemotherapy on 08/18/18 2. Pancreatic Adenocarcinoma: Status Post Chemotherapy on 08/18/18 - Diagnosed in August 2017, underwent chemotherapy 3 cycles abraxane and gemzar, then further josesito-adjuvant therapy with concurrent xeloda and radiation, then surgery with clear resection and margins, then adjuvant treatment with three more cycles of gemzar and abraxane. Tolerated fairly well 3. SIRS Criteria 2/4 - As noted above Plan: continue Zarxio, monitor s/s infection, prophyllaxic abx, and supportive transfusions - Stop Eliquis as platlets less than 50K - Continue Zarxio - Stool Studies ordered. - Transfuse one unit PRBC today
[2018-08-23] MEDS: FILGRASTIM-SNDZ 480 MCG/0.8 ML SYRINGE SQ SCH ×2 (17:36→17:51)
[2018-08-23] MEDS: LIPASE 5,000/PROTEASE 17,000/AMYLASE 24,000 PO SCH ×2 (17:37→17:51)
[2018-08-23] MEDS: SODIUM CHLORIDE 0.9% 1,000 ML IV SCH ×2 (17:37→21:42)
[2018-08-23] MEDS: LOPERAMIDE 2 MG CAP PO PRN ×2 (17:51→21:41)
[2018-08-23] MEDS: DOXAZOSIN 4 MG TAB PO SCH (21:41)
[2018-08-24] MEDS: VANCOMYCIN 1,500 MG in SODIUM CHLORIDE 0.9% 250 ML IVPB SCH ×2 (00:14→14:28)
[2018-08-24] MEDS: CEFEPIME 1 GM in SODIUM CHLORIDE 0.9% 50 ML IVPB SCH ×2 (00:14→13:27)
--- NOTE | 2018-08-24 01:01 | P.PN ---
Subjective Progress Note Date: 08/22/18 Principal diagnosis: Pancytopenia Neutropenic fever Patient is a 78-year-old male with a known history of pancreatic cancer with recent chemotherapy on 08/18/[address] Velasco's office due to concern for possible infection and also pancytopenia. Patient was initially diagnosed with pancreatic cancer in August 2017. Patient was seen in the clinic on with leg pain and swelling and was diagnosed with left lower extremity DVT and is currently on anticoagulation. Patient went to clinic today for follow-up and was complaining of generalized weakness. Patient was found to have tachycardic tachypneic and was also having subjective fevers. He was also having intermittent loose bowels. Patient was sent to Hospital for possible sepsis and pancytopenia secondary to chemotherapy. WBC 0.9 and hemoglobin 6.3 platelets 63,000 and lactic acid 3.2 on admission 08/22/2018 Patient denied any complaints of chest pain or shortness of breath. Patient does have generalized weakness and tired. Blood cultures show no growth. Hemoglobin is 7.4 and WBC 0.6 patient is being continued on broad-spectrum antibiotics. Patient denied diarrhea. C. diff toxin will be sent. Oncology is following. No other acute overnight issues. Patient has been afebrile. Tachycardia and tachypnea resolved. Current medications reviewed. Objective - Vital Signs Vital signs: Vital Signs Temp 98.6 F 08/23/18 05:00 Pulse 88 08/23/18 08:35 Resp 16 08/23/18 08:35 BP 112/67 08/23/18 10:11 Pulse Ox 96 08/23/18 05:00 Intake & Output 08/22/18 08/23/18 08/23/18 18:59 06:59 18:59 Intake Total 1909 Output Total 2 Balance -2 1909 Weight 61.462 kg Intake: Intake, IV Titration 1250 Amount Cefepime 1 gm In Sodium 100 Chloride 0.9% 50 ml @ 100 mls/hr IVPB Q12H [facility] Rx# :[id number] Sodium Chloride 0.9% 1, 900 000 ml @ 75 mls/hr IV . [id number] [facility] Rx#:[id number] Vancomycin 1,500 mg In 250 Sodium Chloride 0.9% 250 ml @ 125 mls/hr IVPB Q12H [facility] Rx#:[id number] Oral 660 Output: Urine 2 Other: Voiding Method Toilet Toilet Toilet # Voids 2 2 # Bowel Movements 2 - Exam PHYSICAL EXAMINATION: Patient is lying in the bed comfortably, no acute distress, awake alert and oriented.. HEENT: Normocephalic. Neck is supple. Pupils reactive. Nostrils clear. Oral cavity is moist. Ears reveal no drainage. Neck reveals no JVD, carotid bruits, or thyromegaly. CHEST EXAMINATION: Trachea is central. Symmetrical expansion. Lung diane clear to auscultation and percussion. CARDIAC: Normal S1, S2 with no gallops. No murmurs ABDOMEN: Soft. Bowel sounds normal. No organomegaly. No abdominal bruits. Extremities: reveal no edema. No clubbing or cyanosis Neurologically awake, alert, oriented x3 with well-coordinated movements. No focal deficits noted Skin: No rash or skin lesions. Psychiatric: Coperative. Nonsuicidal Musculoskeletal: No joint swelling or deformity. Normal range of motion. - Labs CBC & Chem 7: 08/23/18 09:51 08/23/18 09:51 Labs: Abnormal Lab Results - Last 24 Hours (Table) 08/21/18 08/22/18 08/22/18 Range/Units 11:10 10:40 10:40 WBC 0.5 L* (3.8-10.6) k/uL RBC 2.54 L (4.30-5.90) m/uL Hgb 7.5 L (13.0-17.5) gm/dL Hct 26.4 L (39.0-53.0) % MCV 103.6 H D (80.0-100.0) fL MCHC 28.6 L (31.0-37.0) g/dL RDW 20.0 H (11.5-15.5) % Plt Count 59 L (150-450) k/uL Sodium 136 L (137-145) mmol/L Chloride 112 H (98-107) mmol/L Carbon Dioxide 20 L (22-30) mmol/L BUN 5 L (9-20) mg/dL Creatinine 0.45 L (0.66-1.25) mg/dL Glucose 116 H (74-99) mg/dL Calcium 7.5 L (8.4-10.2) mg/dL AST 67 H (17-59) U/L Alkaline Phosphatase 155 H (38-126) U/L Total Protein 4.2 L (6.3-8.2) g/dL Albumin 1.8 L (3.5-5.0) g/dL Crossmatch See Detail 08/23/18 08/23/18 Range/Units 09:51 09:51 WBC 0.6 L* (3.8-10.6) k/uL RBC 2.34 L (4.30-5.90) m/uL Hgb 6.7 L* (13.0-17.5) gm/dL Hct 22.0 L (39.0-53.0) % MCV (80.0-100.0) fL MCHC 30.3 L (31.0-37.0) g/dL RDW 19.5 H (11.5-15.5) % Plt Count 45 L (150-450) k/uL Sodium 136 L (137-145) mmol/L Chloride 112 H (98-107) mmol/L Carbon Dioxide (22-30) mmol/L BUN 3 L (9-20) mg/dL Creatinine 0.48 L (0.66-1.25) mg/dL Glucose 102 H (74-99) mg/dL Calcium 7.3 L (8.4-10.2) mg/dL AST (17-59) U/L Alkaline Phosphatase 154 H (38-126) U/L Total Protein 4.0 L (6.3-8.2) g/dL Albumin 1.6 L (3.5-5.0) g/dL Crossmatch Microbiology - Last 24 Hours (Table) 08/21/18 11:10 Blood Culture - Preliminary Blood No Growth after 24 hours Assessment and Plan Assessment: Neutropenic fever SIRS Left lower extremity DVT diagnosed on 08/12/2018. Currently on anticoagulation. Pancytopenia secondary to recent chemotherapy on 08/18/2018 Anemia with hemoglobin 6.3. Patient was transferred with 1 unit PRBC on 2018 Neutropenia and thrombocytopenia Pancreatic a dull carcinoma status post recent chemotherapy DVT prophylaxis. Patient is already on full and accommodation Plan: Patient will be continued on broad-spectrum antibiotics in the form of vancomycin and cefepime. Continue with IV hydration. Monitor CBC. Follow blood culture reports. Stool for C. diff toxin was ordered. Continue to follow closely. Oncology is on board. Further recommendations based on the clinical course. Time with Patient: Greater than 30
--- NOTE | 2018-08-24 01:03 | P.PN ---
Subjective Progress Note Date: 08/23/18 Principal diagnosis: Pancytopenia Neutropenic fever Patient is a 78-year-old male with a known history of pancreatic cancer with recent chemotherapy on 08/18/[address] Velasco's office due to concern for possible infection and also pancytopenia. Patient was initially diagnosed with pancreatic cancer in August 2017. Patient was seen in the clinic on with leg pain and swelling and was diagnosed with left lower extremity DVT and is currently on anticoagulation. Patient went to clinic today for follow-up and was complaining of generalized weakness. Patient was found to have tachycardic tachypneic and was also having subjective fevers. He was also having intermittent loose bowels. Patient was sent to Hospital for possible sepsis and pancytopenia secondary to chemotherapy. WBC 0.9 and hemoglobin 6.3 platelets 63,000 and lactic acid 3.2 on admission 08/22/2018 Patient denied any complaints of chest pain or shortness of breath. Patient does have generalized weakness and tired. Blood cultures show no growth. Hemoglobin is 7.4 and WBC 0.5 patient is being continued on broad-spectrum antibiotics. Patient denied diarrhea. C. diff toxin will be sent. Oncology is following. No other acute overnight issues. Patient has been afebrile. Tachycardia and tachypnea resolved. 08/23/2018 Patient still feels tired. Hemoglobin is 6.7 and will be transfused with 1 unit of PRBC. WBC count is 0.6 today. No complaints of chest pain or shortness breath. Diarrhea is still present. Blood cultures showed no growth. Continued on broad-spectrum antibiotics. Oncology on board. Current medications reviewed. Objective - Vital Signs Vital signs: Vital Signs Temp 98.1 F 08/23/18 17:35 Pulse 88 08/23/18 17:35 Resp 18 08/23/18 17:35 BP 120/70 08/23/18 17:35 Pulse Ox 98 08/23/18 17:35 Intake & Output 08/23/18 08/23/18 08/24/18 06:59 18:59 06:59 Intake Total 0 310 240 Output Total 4 Balance 0 306 240 Weight 61.462 kg Intake: Intake, IV Titration 1250 Amount Cefepime 1 gm In Sodium 100 Chloride 0.9% 50 ml @ 100 mls/hr IVPB Q12H [facility] Rx# :[id number] Sodium Chloride 0.9% 1, 900 000 ml @ 75 mls/hr IV . [id number] [facility] Rx#:[id number] Vancomycin 1,500 mg In 250 Sodium Chloride 0.9% 250 ml @ 125 mls/hr IVPB Q12H [facility] Rx#:[id number] Oral 660 240 Blood Product 310 Rc As-1 Unit 310 [id number] Output: Urine 4 Other: Voiding Method Toilet Toilet # Voids 2 3 # Bowel Movements 2 - Exam PHYSICAL EXAMINATION: Patient is lying in the bed comfortably, no acute distress, awake alert and oriented.. HEENT: Normocephalic. Neck is supple. Pupils reactive. Nostrils clear. Oral cavity is moist. Ears reveal no drainage. Neck reveals no JVD, carotid bruits, or thyromegaly. CHEST EXAMINATION: Trachea is central. Symmetrical expansion. Lung diane clear to auscultation and percussion. CARDIAC: Normal S1, S2 with no gallops. No murmurs ABDOMEN: Soft. Bowel sounds normal. No organomegaly. No abdominal bruits. Extremities: reveal no edema. No clubbing or cyanosis Neurologically awake, alert, oriented x3 with well-coordinated movements. No focal deficits noted Skin: No rash or skin lesions. Psychiatric: Coperative. Nonsuicidal Musculoskeletal: No joint swelling or deformity. Normal range of motion. - Labs CBC & Chem 7: 08/23/18 09:51 08/23/18 09:51 Labs: Abnormal Lab Results - Last 24 Hours (Table) 08/21/18 08/22/18 08/22/18 Range/Units 11:10 10:40 10:40 WBC 0.5 L* (3.8-10.6) k/uL RBC 2.54 L (4.30-5.90) m/uL Hgb 7.5 L (13.0-17.5) gm/dL Hct 26.4 L (39.0-53.0) % MCV 103.6 H D (80.0-100.0) fL MCHC 28.6 L (31.0-37.0) g/dL RDW 20.0 H (11.5-15.5) % Plt Count 59 L (150-450) k/uL Sodium 136 L (137-145) mmol/L Chloride 112 H (98-107) mmol/L Carbon Dioxide 20 L (22-30) mmol/L BUN 5 L (9-20) mg/dL Creatinine 0.45 L (0.66-1.25) mg/dL Glucose 116 H (74-99) mg/dL Calcium 7.5 L (8.4-10.2) mg/dL AST 67 H (17-59) U/L Alkaline Phosphatase 155 H (38-126) U/L Total Protein 4.2 L (6.3-8.2) g/dL Albumin 1.8 L (3.5-5.0) g/dL Crossmatch See Detail 08/23/18 08/23/18 Range/Units 09:51 09:51 WBC 0.6 L* (3.8-10.6) k/uL RBC 2.34 L (4.30-5.90) m/uL Hgb 6.7 L* (13.0-17.5) gm/dL Hct 22.0 L (39.0-53.0) % MCV (80.0-100.0) fL MCHC 30.3 L (31.0-37.0) g/dL RDW 19.5 H (11.5-15.5) % Plt Count 45 L (150-450) k/uL Sodium 136 L (137-145) mmol/L Chloride 112 H (98-107) mmol/L Carbon Dioxide (22-30) mmol/L BUN 3 L (9-20) mg/dL Creatinine 0.48 L (0.66-1.25) mg/dL Glucose 102 H (74-99) mg/dL Calcium 7.3 L (8.4-10.2) mg/dL AST (17-59) U/L Alkaline Phosphatase 154 H (38-126) U/L Total Protein 4.0 L (6.3-8.2) g/dL Albumin 1.6 L (3.5-5.0) g/dL Crossmatch Microbiology - Last 24 Hours (Table) 08/21/18 11:10 Blood Culture - Preliminary Blood No Growth after 48 hours Assessment and Plan Assessment: Neutropenic fever. Patient is afebrile now. SIRS. Resolved. Left lower extremity DVT diagnosed on 08/12/2018. Currently on anticoagulation. Pancytopenia secondary to recent chemotherapy on 08/18/2018 Anemia with hemoglobin 6.3. Patient was transferred with 1 unit PRBC on 2018 Neutropenia and thrombocytopenia Pancreatic a dull carcinoma status post recent chemotherapy DVT prophylaxis. Patient is already on full and accommodation Plan: Patient will be continued on broad-spectrum antibiotics in the form of vancomycin and cefepime until cultures are negative.. Continue with IV hydration. Monitor CBC. Follow blood culture reports. Stool for C. diff toxin was ordered. Continue to follow closely. Oncology is on board. Further recommendations based on the clinical course. Time with Patient: Greater than 30
[2018-08-24] MEDS: PANTOPRAZOLE 40 MG TABLET PO SCH (07:48)
[2018-08-24] MEDS: METOPROLOL TARTRATE 25 MG TAB PO SCH ×2 (07:48→19:49)
[2018-08-24] MEDS: GABAPENTIN 100 MG CAP PO SCH ×2 (07:48→19:49)
[2018-08-24] MEDS: LOPERAMIDE 2 MG CAP PO PRN ×4 (07:48→19:49)
[2018-08-24] MEDS: ALLOPURINOL 300 MG TAB PO SCH (07:48)
[2018-08-24] MEDS: FINASTERIDE 5 MG TAB PO SCH (07:48)
[2018-08-24 08:16] LABS: Anisocytosis Slight; HCT 31.1 % (39.0-53.0); HGB 9.9 gm/dL (13.0-17.5); Hypochromasia Moderate; MCH 29.4 pg (25.0-35.0); MCHC 31.9 g/dL (31.0-37.0); Mean Platelet Volume 8.9; Poikilocytosis Slight; RBC 3.37 m/uL (4.30-5.90); RDW 18.3 % (11.5-15.5)
[2018-08-24 08:23] LABS: Anion Gap 6 mmol/L; Blood Urea Nitrogen <2 mg/dL (9-20); Calcium 7.8 mg/dL (8.4-10.2); Carbon Dioxide 21 mmol/L (22-30); Chloride 111 mmol/L (98-107); Glucose 93 mg/dL (74-99); Potassium 3.8 mmol/L (3.5-5.1); Sodium 138 mmol/L (137-145); WBC 0.8 k/uL (3.8-10.6)
[2018-08-24 08:24] LABS: Platelet Count 36 k/uL (150-450)
[2018-08-24] MEDS ORDERED: VANCOMYCIN TROUGH DUE 1 EACH MISC MISCELLANE ONE (11:00)
[2018-08-24] MEDS ORDERED: VANCOMYCIN IV PER PHARMACY 1 EACH MISC MISCELLANE PRN (11:03)
--- NOTE | 2018-08-24 11:10 | P.PN ---
Subjective History of present illness, from records Patient is a 78-year-old male with a known history of pancreatic cancer with recent chemotherapy on 08/18/[address] Velasco's office due to concern for possible infection and also pancytopenia. Patient was initially diagnosed with pancreatic cancer in August 2017. Patient was seen in the clinic on with leg pain and swelling and was diagnosed with left lower extremity DVT and is currently on anticoagulation. Patient went to clinic today for follow-up and was complaining of generalized weakness. Patient was found to have tachycardic tachypneic and was also having subjective fevers. He was also having intermittent loose bowels. Patient was sent to Hospital for possible sepsis and pancytopenia secondary to chemotherapy. WBC 0.9 and hemoglobin 6.3 platelets 63,000 and lactic acid 3.2 on admission 08/22/2018 Patient denied any complaints of chest pain or shortness of breath. Patient does have generalized weakness and tired. Blood cultures show no growth. Hemoglobin is 7.4 and WBC 0.5 patient is being continued on broad-spectrum antibiotics. Patient denied diarrhea. C. diff toxin will be sent. Oncology is following. No other acute overnight issues. Patient has been afebrile. Tachycardia and tachypnea resolved. 08/23/2018 Patient still feels tired. Hemoglobin is 6.7 and will be transfused with 1 unit of PRBC. WBC count is 0.6 today. No complaints of chest pain or shortness breath. Diarrhea is still present. Blood cultures showed no growth. Continued on broad-spectrum antibiotics. Oncology on board. Current medications reviewed. Subjective 08/24/2018 Patient states that he presents because of pancytopenia, secondary to his chemotherapy. On admission he was found to have SIRS, suspicious for infection and he was started on antibiotics empirically, he is on vancomycin and cefepime. Patient was lying in bed, feeling lethargic. However his fully awake and oriented and able to smile. He is able to tolerate diet with no nausea vomiting. He still have diarrhea about 2-3 bouts per day, last one was this morning however he denies blood in it. He has little or no abdominal pain. Patient remains on IV antibiotics and IV fluids at 75 L/h. WBC 0.6 up to 0.8. Hemoglobin is 6.7, up to 9.9 and status post one unit of blood transfusion. Platelets 45 coming down to 36. His anticoagulation still on hold for history of left leg DVT, he was taken Eliquis at that time. Vital showing only tachycardia, no fever. His breathing quietly. However we cannot rule out sepsis and need follow-up the cultures. Patient denies coughing or chest pain or active bleeding. No dyspnea. Iron study showing anemia of chronic disease. Vitamin B-12 is high. Liver enzymes within normal limits. Oncology team are following the patient Objective - Vital Signs Vital signs: Vital Signs Temp 98.8 F 08/24/18 05:00 Pulse 81 08/24/18 05:00 Resp 16 08/24/18 05:00 BP 111/55 08/24/18 05:00 Pulse Ox 98 08/24/18 05:00 Intake & Output 08/23/18 08/24/18 08/24/18 18:59 06:59 18:59 Intake Total 310 1520 Output Total 4 Balance 306 1520 Weight 61.462 kg Intake: Intake, IV Titration 380 Amount Cefepime 1 gm In Sodium 50 Chloride 0.9% 50 ml @ 100 mls/hr IVPB Q12H [facility] Rx# :[id number] Sodium Chloride 0.9% 1, 80 000 ml @ 75 mls/hr IV . [id number] [facility] Rx#:[id number] Vancomycin 1,500 mg In 250 Sodium Chloride 0.9% 250 ml @ 125 mls/hr IVPB Q12H [facility] Rx#:[id number] Oral 1140 Blood Product 310 Rc As-1 Unit 310 [id number] Output: Urine 4 Other: Voiding Method Toilet Toilet # Voids 3 1 - Exam GENERAL: The patient is alert and oriented x3, not in any acute distress. Well developed, well nourished. HEENT: Pupils are round and equally reacting to light. EOMI. No scleral icterus. No conjunctival pallor. Normocephalic, atraumatic. No pharyngeal erythema. No thyromegaly. CARDIOVASCULAR: S1 and S2 present. No murmurs, rubs, or gallops. PULMONARY: Chest is clear to auscultation, no wheezing or crackles. ABDOMEN: Soft, nontender, nondistended, normoactive bowel sounds. No palpable organomegaly. MUSCULOSKELETAL: No joint swelling or deformity. EXTREMITIES: No cyanosis, clubbing, or pedal edema. NEUROLOGICAL: Gross neurological examination did not reveal any focal deficits. SKIN: No rashes. - Labs CBC & Chem 7: 08/24/18 07:47 08/24/18 07:47 Labs: Abnormal Lab Results - Last 24 Hours (Table) 08/21/18 08/24/18 08/24/18 Range/Units 11:10 07:47 07:47 WBC 0.8 L* (3.8-10.6) k/uL RBC 3.37 L (4.30-5.90) m/uL Hgb 9.9 L D (13.0-17.5) gm/dL Hct 31.1 L (39.0-53.0) % RDW 18.3 H (11.5-15.5) % Plt Count 36 L (150-450) k/uL Chloride 111 H (98-107) mmol/L Carbon Dioxide 21 L (22-30) mmol/L BUN <2 L (9-20) mg/dL Creatinine 0.49 L (0.66-1.25) mg/dL Calcium 7.8 L (8.4-10.2) mg/dL Crossmatch See Detail Microbiology - Last 24 Hours (Table) 08/21/18 11:10 Blood Culture - Preliminary Blood No Growth after 48 hours Assessment and Plan Assessment: Systemic inflammatory response syndrome, with tachycardia and tachypnea on admission, currently only mild tachycardia. Rule out sepsis Pancytopenia, mostly secondary to chemotherapy Recent history of Left lower extremity DVT diagnosed on 08/12/2018. Currently off anticoagulation for thrombocytopenia. He was in an L Eliquis Anemia with hemoglobin 6.3. Patient was transferred with 2 unit PRBC on 2018 and 08/23/2018 Neutropenia and thrombocytopenia Pancreatic a dull carcinoma status post recent chemotherapy DVT prophylaxis. Eliquis on hold for thrombocytopenia. GI prophylaxis, on Protonix Plan: Patient will be continued on broad-spectrum antibiotics in the form of vancomycin and cefepime until cultures are negative, switch vancomycin to pharmacy to dose.. Continue with IV hydration. Monitor CBC. Follow blood culture reports. Stool for C. diff toxin was ordered. Continue to follow closely. Oncology is on board. Further recommendations based on the clinical course.
--- NOTE | 2018-08-24 11:28 | P.PN ---
Subjective Progress Note Date: 08/24/18 Principal diagnosis: Pancreatic adeno, completed adjuvant chemo 6 days ago Pt seen today in f/u, denies fever, nausea, FRANCISCO, cough, having diarrhea today, no bleeding, mucus or rectal pain, mild RLQ abd cramping, he is ambulating. Objective - Vital Signs Vital signs: Vital Signs Temp 98.8 F 08/24/18 05:00 Pulse 81 08/24/18 05:00 Resp 16 08/24/18 05:00 BP 111/55 08/24/18 05:00 Pulse Ox 98 08/24/18 05:00 Intake & Output 08/23/18 08/24/18 08/24/18 18:59 06:59 18:59 Intake Total 310 1520 Output Total 4 Balance 306 1520 Weight 61.462 kg Intake: Intake, IV Titration 380 Amount Cefepime 1 gm In Sodium 50 Chloride 0.9% 50 ml @ 100 mls/hr IVPB Q12H EMILY Rx# :[id number] Sodium Chloride 0.9% 1, 80 000 ml @ 75 mls/hr IV . [id number] EMILY Rx#:[id number] Vancomycin 1,500 mg In 250 Sodium Chloride 0.9% 250 ml @ 125 mls/hr IVPB Q12H EMILY Rx#:[id number] Oral 1140 Blood Product 310 Rc As-1 Unit 310 [id number] Output: Urine 4 Other: Voiding Method Toilet Toilet # Voids 3 1 - Constitutional General appearance: Present: cooperative, thin - EENT EENT Comment(s): dry mouth, red tongue Eyes: Present: anicteric sclerae, EOMI - Respiratory Respiratory: bilateral: CTA - Cardiovascular Rhythm: regular Heart sounds: normal: S1, S2 Abnormal Heart Sounds: Absent: systolic murmur, diastolic murmur, rub, S3 Gallop , S4 Gallop, click, other - Peripheral edema leg Peripheral Edema: bilateral: None - Gastrointestinal General gastrointestinal: Present: normal bowel sounds, soft Localized gastrointestinal: tender: RLQ - Neurologic Neurologic: Present: CNII-XII intact - Musculoskeletal Musculoskeletal: Present: strength equal bilaterally - Psychiatric Psychiatric: Present: A&O x's 3, appropriate affect, intact judgment & insight - Labs CBC & Chem 7: 08/24/18 07:47 08/24/18 07:47 Labs: Abnormal Lab Results - Last 24 Hours (Table) 08/21/18 08/24/18 08/24/18 Range/Units 11:10 07:47 07:47 WBC 0.8 L* (3.8-10.6) k/uL RBC 3.37 L (4.30-5.90) m/uL Hgb 9.9 L D (13.0-17.5) gm/dL Hct 31.1 L (39.0-53.0) % RDW 18.3 H (11.5-15.5) % Plt Count 36 L (150-450) k/uL Chloride 111 H (98-107) mmol/L Carbon Dioxide 21 L (22-30) mmol/L BUN <2 L (9-20) mg/dL Creatinine 0.49 L (0.66-1.25) mg/dL Calcium 7.8 L (8.4-10.2) mg/dL Crossmatch See Detail Microbiology - Last 24 Hours (Table) 08/21/18 11:10 Blood Culture - Preliminary Blood No Growth after 48 hours Assessment and Plan (1) Pancytopenia due to antineoplastic chemotherapy Narrative/Plan: Cont GCSF for low WBC/ANC, pt is on empiric abx No PRBCs or platelet transfusions needed today CBC daily Current Visit: Yes Status: Acute Priority: High Code(s): D61.810 - ANTINEOPLASTIC CHEMOTHERAPY INDUCED PANCYTOPENIA; T45.1X5A - ADVERSE EFFECT OF ANTINEOPLASTIC AND IMMUNOSUP DRUGS, INIT SNOMED Code(s): 241470114657119 (2) Diarrhea Narrative/Plan: Stool specimen requested for evaluation Current Visit: Yes Status: Acute Priority: High Code(s): R19.7 - DIARRHEA , UNSPECIFIED SNOMED Code(s): 96362050 (3) Cancer of pancreas Narrative/Plan: Pt completed adjuvant treatment 6 days ago. His f/u will be scheduled outpatient Current Visit: Yes Status: Chronic Priority: Medium Code(s): C25.9 - MALIGNANT NEOPLASM OF PANCREAS, UNSPECIFIED SNOMED Code(s): 176912405 (4) Neutropenic typhlitis Narrative/Plan: On exam RLQ discomfort, diarrhea that started today. Stool cultures ordered Clear liquid diet for now, may have to make NPO if abd pain persists or progresses Pt knows to report changes FERNANDO Current Visit: Yes Status: Acute Priority: High Code(s): K36 - OTHER APPENDICITIS SNOMED Code(s): 9726488
[2018-08-24] MEDS: VANCOMYCIN 1,250 MG in SODIUM CHLORIDE 0.9% 250 ML IVPB SCH (16:10)
[2018-08-24] MEDS: SODIUM CHLORIDE 0.9% 1,000 ML IV SCH (16:14)
[2018-08-24] MEDS: DOXAZOSIN 4 MG TAB PO SCH (19:49)
[2018-08-25] MEDS: SODIUM CHLORIDE 0.9% 1,000 ML IV SCH ×2 (00:41→15:02)
[2018-08-25] MEDS: LOPERAMIDE 2 MG CAP PO PRN ×3 (00:42→10:19)
[2018-08-25] MEDS: CEFEPIME 1 GM in SODIUM CHLORIDE 0.9% 50 ML IVPB SCH ×2 (00:42→13:30)
[2018-08-25] MEDS: VANCOMYCIN 1,250 MG in SODIUM CHLORIDE 0.9% 250 ML IVPB SCH ×2 (04:03→17:52)
[2018-08-25 08:13] LABS: Anisocytosis Slight; HCT 25.8 % (39.0-53.0); Hypochromasia Slight; MCHC 31.9 g/dL (31.0-37.0); MCV 90.7 fL (80.0-100.0); Mean Platelet Volume 10.7; RBC 2.84 m/uL (4.30-5.90); RDW 18.1 % (11.5-15.5)
[2018-08-25 08:27] LABS: Platelet Count 35 k/uL (150-450)
[2018-08-25 08:28] LABS: HGB 8.2 gm/dL (13.0-17.5)
[2018-08-25 08:32] LABS: WBC 1.1 k/uL (3.8-10.6)
[2018-08-25] MEDS: GABAPENTIN 100 MG CAP PO SCH ×2 (08:33→20:34)
[2018-08-25] MEDS: PANTOPRAZOLE 40 MG TABLET PO SCH (08:33)
[2018-08-25] MEDS: METOPROLOL TARTRATE 25 MG TAB PO SCH ×2 (08:33→20:33)
[2018-08-25] MEDS: FINASTERIDE 5 MG TAB PO SCH (08:34)
[2018-08-25] MEDS: ALLOPURINOL 300 MG TAB PO SCH (08:34)
[2018-08-25 08:52] LABS: Anion Gap 2 mmol/L; Blood Urea Nitrogen <2 mg/dL (9-20); Calcium 7.5 mg/dL (8.4-10.2); Carbon Dioxide 23 mmol/L (22-30); Chloride 111 mmol/L (98-107); Glucose 83 mg/dL (74-99); Potassium 3.3 mmol/L (3.5-5.1); Sodium 136 mmol/L (137-145)
[2018-08-25 10:42] LABS: Neutrophils % (M) 42 %
[2018-08-25 10:43] LABS: Band Neutrophils % 1 %; Eosinophils # (M) 0.04 k/uL (0-0.7); Lymphocytes # (M) 0.19 k/uL (1.0-4.8); Monocytes # (M) 0.39 k/uL (0-1.0)
[2018-08-25 10:45] LABS: Metamyelocytes # (M) 0.01 k/uL (0); Metamyelocytes % 1 %; Nucleated Red Blood Cells 1 /100 WBC (0-0); Total Cells Counted 200
[2018-08-25 10:48] LABS: Ovalocytes Present; Polychromasia Present
[2018-08-25] MEDS ORDERED: LOPERAMIDE 2 MG CAP PO PRN (12:25)
[2018-08-25] MEDS ORDERED: DIPHENOX-ATROP 2.5-0.025 MG 1 EACH TAB PO STA (12:25)
--- NOTE | 2018-08-25 12:57 | P.PN ---
Subjective History of present illness, from records Patient is a 78-year-old male with a known history of pancreatic cancer with recent chemotherapy on 08/18/[address] Velasco's office due to concern for possible infection and also pancytopenia. Patient was initially diagnosed with pancreatic cancer in August 2017. Patient was seen in the clinic on with leg pain and swelling and was diagnosed with left lower extremity DVT and is currently on anticoagulation. Patient went to clinic today for follow-up and was complaining of generalized weakness. Patient was found to have tachycardic tachypneic and was also having subjective fevers. He was also having intermittent loose bowels. Patient was sent to Hospital for possible sepsis and pancytopenia secondary to chemotherapy. WBC 0.9 and hemoglobin 6.3 platelets 63,000 and lactic acid 3.2 on admission 08/22/2018 Patient denied any complaints of chest pain or shortness of breath. Patient does have generalized weakness and tired. Blood cultures show no growth. Hemoglobin is 7.4 and WBC 0.5 patient is being continued on broad-spectrum antibiotics. Patient denied diarrhea. C. diff toxin will be sent. Oncology is following. No other acute overnight issues. Patient has been afebrile. Tachycardia and tachypnea resolved. 08/23/2018 Patient still feels tired. Hemoglobin is 6.7 and will be transfused with 1 unit of PRBC. WBC count is 0.6 today. No complaints of chest pain or shortness breath. Diarrhea is still present. Blood cultures showed no growth. Continued on broad-spectrum antibiotics. Oncology on board. Current medications reviewed. Subjective 08/24/2018 Patient states that he presents because of pancytopenia, secondary to his chemotherapy. On admission he was found to have SIRS, suspicious for infection and he was started on antibiotics empirically, he is on vancomycin and cefepime. Patient was lying in bed, feeling lethargic. However his fully awake and oriented and able to smile. He is able to tolerate diet with no nausea vomiting. He still have diarrhea about 2-3 bouts per day, last one was this morning however he denies blood in it. He has little or no abdominal pain. Patient remains on IV antibiotics and IV fluids at 75 L/h. WBC 0.6 up to 0.8. Hemoglobin is 6.7, up to 9.9 and status post one unit of blood transfusion. Platelets 45 coming down to 36. His anticoagulation still on hold for history of left leg DVT, he was taken Eliquis at that time. Vital showing only tachycardia, no fever. His breathing quietly. However we cannot rule out sepsis and need follow-up the cultures. Patient denies coughing or chest pain or active bleeding. No dyspnea. Iron study showing anemia of chronic disease. Vitamin B-12 is high. Liver enzymes within normal limits. Oncology team are following the patient 08/25/2018 Patient clinically looks the same as yesterday, no abdominal pain or nausea vomiting. Tolerating diet. He still have about 3 loose bowel movement from yesterday, with no blood. No fever and Vitas looks stable. No tachycardia. His CBC showing some improvement with WBC going up to 1.1, and platelets 3 minutes low at 35 and hemoglobin low at 8.2. Potassium 3.3. Creatinine 0.49. Hematology/oncology team follow-up is appreciated. Stool culture and WBC has been ordered. Objective - Vital Signs Vital signs: Vital Signs Temp 98.1 F 08/25/18 12:35 Pulse 88 08/25/18 12:35 Resp 16 08/25/18 12:35 BP 113/55 08/25/18 12:35 Pulse Ox 98 08/25/18 12:35 Intake & Output 08/24/18 08/25/18 08/25/18 18:59 06:59 18:59 Intake Total 770 1380 Balance 770 1380 Intake: Intake, IV Titration 650 300 Amount Cefepime 1 gm In Sodium 50 Chloride 0.9% 50 ml @ 100 mls/hr IVPB Q12H [facility] Rx# :[id number] Sodium Chloride 0.9% 1, 600 300 000 ml @ 75 mls/hr IV . [id number] EMILY Rx#:[id number] Oral 120 1080 Other: Voiding Method Toilet Toilet Toilet # Voids 3 # Bowel Movements 2 - Exam GENERAL: The patient is alert and oriented x3, not in any acute distress. Well developed, well nourished. HEENT: Pupils are round and equally reacting to light. EOMI. No scleral icterus. No conjunctival pallor. Normocephalic, atraumatic. No pharyngeal erythema. No thyromegaly. CARDIOVASCULAR: S1 and S2 present. No murmurs, rubs, or gallops. PULMONARY: Chest is clear to auscultation, no wheezing or crackles. ABDOMEN: Soft, nontender, nondistended, normoactive bowel sounds. No palpable organomegaly. MUSCULOSKELETAL: No joint swelling or deformity. EXTREMITIES: No cyanosis, clubbing, or pedal edema. NEUROLOGICAL: Gross neurological examination did not reveal any focal deficits. SKIN: No rashes. - Labs CBC & Chem 7: 08/25/18 07:07 08/25/18 07:07 Labs: Abnormal Lab Results - Last 24 Hours (Table) 08/25/18 08/25/18 Range/Units 07:07 07:07 WBC 1.1 L* (3.8-10.6) k/uL RBC 2.84 L (4.30-5.90) m/uL Hgb 8.2 L D (13.0-17.5) gm/dL Hct 25.8 L (39.0-53.0) % RDW 18.1 H (11.5-15.5) % Plt Count 35 L (150-450) k/uL Neutrophils # (Manual) 0.40 L* (1.3-7.7) k/uL Lymphocytes # (Manual) 0.19 L (1.0-4.8) k/uL Metamyelocytes # (Man) 0.01 H (0) k/uL Nucleated RBCs 1 H (0-0) /100 WBC Sodium 136 L (137-145) mmol/L Potassium 3.3 L (3.5-5.1) mmol/L Chloride 111 H (98-107) mmol/L BUN <2 L (9-20) mg/dL Creatinine 0.49 L (0.66-1.25) mg/dL Calcium 7.5 L (8.4-10.2) mg/dL Microbiology - Last 24 Hours (Table) 08/21/18 11:10 Blood Culture - Preliminary Blood No Growth after 72 hours Assessment and Plan Assessment: Systemic inflammatory response syndrome, with tachycardia and tachypnea on admission, currently only mild tachycardia. Rule out sepsis Pancytopenia, mostly secondary to chemotherapy Recent history of Left lower extremity DVT diagnosed on 08/12/2018. Currently off anticoagulation for thrombocytopenia. He was in an L Eliquis Anemia with hemoglobin 6.3. Patient was transferred with 2 unit PRBC on 2018 and 08/23/2018 Neutropenia and thrombocytopenia Pancreatic a dull carcinoma status post recent chemotherapy DVT prophylaxis. Eliquis on hold for thrombocytopenia. GI prophylaxis, on Protonix Plan: Patient will be continued on broad-spectrum antibiotics in the form of vancomycin and cefepime until cultures are negative, switch vancomycin to pharmacy to dose.. Continue with IV hydration. Monitor CBC. Follow blood culture reports. Stool for C. diff toxin was ordered. Continue to follow closely. Oncology is on board. Further recommendations based on the clinical course.
[2018-08-25] MEDS: POTASSIUM CHLORIDE 10 MEQ in WATER FOR INJECTION 1 100ML.BAG IVPB SCH ×3 (15:04→17:32)
[2018-08-25] MEDS: LIPASE 5,000/PROTEASE 17,000/AMYLASE 24,000 PO SCH (17:34)
[2018-08-25] MEDS: FILGRASTIM-SNDZ 480 MCG/0.8 ML SYRINGE SQ SCH (17:52)
--- NOTE | 2018-08-25 18:51 | P.PN ---
Subjective Progress Note Date: 08/25/18 Principal diagnosis: Pancreatic adeno, completed adjuvant chemo Patient seen in follow-up. He had 3 diarrhea stools today, associated with some cramping that resolves about 15 min after the BM, he denies visible blood in the stool but, occult blood was noted on stool evaluation. Patient is negative for C. difficile. Patient continues on a clear liquid diet which she is tolerating well, no fevers, nausea, vomiting, difficulty breathing, swelling in the legs, patient is a relating back and forth to the restroom Objective - Vital Signs Vital signs: Vital Signs Temp 98.1 F 08/25/18 12:35 Pulse 88 08/25/18 16:00 Resp 16 08/25/18 16:00 BP 113/55 08/25/18 12:35 Pulse Ox 98 08/25/18 12:35 Intake & Output 08/24/18 08/25/18 08/25/18 18:59 06:59 18:59 Intake Total 770 1380 600 Balance 770 1380 600 Intake: Intake, IV Titration 650 300 600 Amount Cefepime 1 gm In Sodium 50 50 Chloride 0.9% 50 ml @ 100 mls/hr IVPB Q12H [facility] Rx# :[id number] Sodium Chloride 0.9% 1, 600 300 550 000 ml @ 75 mls/hr IV . [id number] EMILY Rx#:[id number] Oral 120 1080 Other: Voiding Method Toilet Toilet Toilet # Voids 3 # Bowel Movements 2 - Constitutional General appearance: Present: cooperative, no acute distress, thin - EENT Eyes: Present: anicteric sclerae, EOMI ENT: Present: hearing grossly normal, normal oropharynx - Respiratory Respiratory: bilateral: CTA - Cardiovascular Rhythm: regular Heart sounds: normal: S1, S2 Abnormal Heart Sounds: Absent: systolic murmur, diastolic murmur, rub, S3 Gallop , S4 Gallop, click, other - Peripheral edema leg Peripheral Edema: bilateral: Trace - Gastrointestinal General gastrointestinal: Present: soft Localized gastrointestinal: tender: LLQ, epigastric periumbilical - Integumentary Integumentary: Present: pale - Neurologic Neurologic: Present: CNII-XII intact - Musculoskeletal Musculoskeletal: Present: generalized weakness, strength equal bilaterally - Psychiatric Psychiatric: Present: A&O x's 3, appropriate affect, intact judgment & insight - Labs CBC & Chem 7: 08/25/18 07:07 08/25/18 07:07 Labs: Abnormal Lab Results - Last 24 Hours (Table) 08/25/18 08/25/18 Range/Units 07:07 07:07 WBC 1.1 L* (3.8-10.6) k/uL RBC 2.84 L (4.30-5.90) m/uL Hgb 8.2 L D (13.0-17.5) gm/dL Hct 25.8 L (39.0-53.0) % RDW 18.1 H (11.5-15.5) % Plt Count 35 L (150-450) k/uL Neutrophils # (Manual) 0.40 L* (1.3-7.7) k/uL Lymphocytes # (Manual) 0.19 L (1.0-4.8) k/uL Metamyelocytes # (Man) 0.01 H (0) k/uL Nucleated RBCs 1 H (0-0) /100 WBC Sodium 136 L (137-145) mmol/L Potassium 3.3 L (3.5-5.1) mmol/L Chloride 111 H (98-107) mmol/L BUN <2 L (9-20) mg/dL Creatinine 0.49 L (0.66-1.25) mg/dL Calcium 7.5 L (8.4-10.2) mg/dL Microbiology - Last 24 Hours (Table) 08/21/18 11:10 Blood Culture - Preliminary Blood No Growth after 96 hours Assessment and Plan (1) Pancytopenia due to antineoplastic chemotherapy Narrative/Plan: WBC slightly improved today to 1.1. Continue G-CSF. Platelet count is 35,000 today, continue to hold anticoagulation for recent left lower extremity DVT. Hemoglobin is 8.2, considering transfusion hemoglobin of 6.4 this would be the more realistic hemoglobin. No acute intervention at this time. Current Visit: Yes Status: Acute Priority: High Code(s): D61.810 - ANTINEOPLASTIC CHEMOTHERAPY INDUCED PANCYTOPENIA; T45.1X5A - ADVERSE EFFECT OF ANTINEOPLASTIC AND IMMUNOSUP DRUGS, INIT SNOMED Code(s): 219715385791256 (2) Diarrhea Narrative/Plan: Negative C. difficile. 1 time dose of Lomotil will be given, Imodium has been increased in dose made available 4 times a day when necessary. Current Visit: Yes Status: Acute Priority: High Code(s): R19.7 - DIARRHEA , UNSPECIFIED SNOMED Code(s): 57730685 (3) Cancer of pancreas Narrative/Plan: Patient has completed neoadjuvant treatment, had surgery and completed adjuvant treatment. He now needs to continue follow-up Current Visit: Yes Status: Chronic Priority: Medium Code(s): C25.9 - MALIGNANT NEOPLASM OF PANCREAS, UNSPECIFIED SNOMED Code(s): 283723357 (4) Neutropenic typhlitis Narrative/Plan: Continue clear liquids for now. Patient is on G-CSF. WBC and ANC are being monitored closely. Current Visit: Yes Status: Acute Priority: High Code(s): K36 - OTHER APPENDICITIS SNOMED Code(s): 3529304
[2018-08-25] MEDS: DOXAZOSIN 4 MG TAB PO SCH (20:34)
[2018-08-26] MEDS: CEFEPIME 1 GM in SODIUM CHLORIDE 0.9% 50 ML IVPB SCH ×2 (00:01→14:24)
[2018-08-26] MEDS: VANCOMYCIN 1,250 MG in SODIUM CHLORIDE 0.9% 250 ML IVPB SCH ×2 (03:49→17:11)
[2018-08-26] MEDS: SODIUM CHLORIDE 0.9% 1,000 ML IV SCH (03:49)
[2018-08-26 07:56] LABS: Anion Gap 6 mmol/L; Blood Urea Nitrogen <2 mg/dL (9-20); Calcium 7.6 mg/dL (8.4-10.2); Carbon Dioxide 19 mmol/L (22-30); Chloride 112 mmol/L (98-107); Glucose 80 mg/dL (74-99); Potassium 3.2 mmol/L (3.5-5.1); Sodium 137 mmol/L (137-145)
[2018-08-26 07:58] LABS: Anisocytosis Slight; HCT 27.4 % (39.0-53.0); HGB 8.6 gm/dL (13.0-17.5); Hypochromasia Moderate; MCH 28.9 pg (25.0-35.0); MCHC 31.3 g/dL (31.0-37.0); MCV 92.4 fL (80.0-100.0); Mean Platelet Volume 10.9; Poikilocytosis Slight; RBC 2.96 m/uL (4.30-5.90); RDW 18.5 % (11.5-15.5); WBC 4.9 k/uL (3.8-10.6)
[2018-08-26 07:59] LABS: Platelet Count 39 k/uL (150-450)
[2018-08-26] MEDS: GABAPENTIN 100 MG CAP PO SCH ×2 (08:09→22:14)
[2018-08-26] MEDS: FINASTERIDE 5 MG TAB PO SCH (08:09)
[2018-08-26] MEDS: METOPROLOL TARTRATE 25 MG TAB PO SCH ×2 (08:09→22:16)
[2018-08-26] MEDS: PANTOPRAZOLE 40 MG TABLET PO SCH (08:09)
[2018-08-26] MEDS: ALLOPURINOL 300 MG TAB PO SCH (08:09)
[2018-08-26 08:42] LABS: Eosinophils # (M) 0.15 k/uL (0-0.7); Metamyelocytes # (M) 0.05 k/uL (0); Metamyelocytes % 1 %; Nucleated Red Blood Cells 0 /100 WBC (0-0)
[2018-08-26 08:44] LABS: Band Neutrophils % 6 %; Lymphocytes # (M) 0.44 k/uL (1.0-4.8); Monocytes # (M) 1.27 k/uL (0-1.0); Myelocytes % 2 %; Neutrophils % (M) 55 %; Total Cells Counted 200
[2018-08-26 08:45] LABS: Polychromasia Present
[2018-08-26] MEDS: POTASSIUM CHLORIDE ER 20 MEQ TAB.ER PO SCH ×2 (10:55→22:14)
[2018-08-26] MEDS ORDERED: MAGNESIUM SULFATE-D5W PMX 1 GM in DEXTROSE/WATER 1 100ML.BAG IVPB ONE (14:00)
--- NOTE | 2018-08-26 14:59 | P.PN ---
Subjective History of present illness, from records Patient is a 78-year-old male with a known history of pancreatic cancer with recent chemotherapy on 08/18/[address] Velasco's office due to concern for possible infection and also pancytopenia. Patient was initially diagnosed with pancreatic cancer in August 2017. Patient was seen in the clinic on with leg pain and swelling and was diagnosed with left lower extremity DVT and is currently on anticoagulation. Patient went to clinic today for follow-up and was complaining of generalized weakness. Patient was found to have tachycardic tachypneic and was also having subjective fevers. He was also having intermittent loose bowels. Patient was sent to Hospital for possible sepsis and pancytopenia secondary to chemotherapy. WBC 0.9 and hemoglobin 6.3 platelets 63,000 and lactic acid 3.2 on admission 08/22/2018 Patient denied any complaints of chest pain or shortness of breath. Patient does have generalized weakness and tired. Blood cultures show no growth. Hemoglobin is 7.4 and WBC 0.5 patient is being continued on broad-spectrum antibiotics. Patient denied diarrhea. C. diff toxin will be sent. Oncology is following. No other acute overnight issues. Patient has been afebrile. Tachycardia and tachypnea resolved. 08/23/2018 Patient still feels tired. Hemoglobin is 6.7 and will be transfused with 1 unit of PRBC. WBC count is 0.6 today. No complaints of chest pain or shortness breath. Diarrhea is still present. Blood cultures showed no growth. Continued on broad-spectrum antibiotics. Oncology on board. Current medications reviewed. Subjective 08/24/2018 Patient states that he presents because of pancytopenia, secondary to his chemotherapy. On admission he was found to have SIRS, suspicious for infection and he was started on antibiotics empirically, he is on vancomycin and cefepime. Patient was lying in bed, feeling lethargic. However his fully awake and oriented and able to smile. He is able to tolerate diet with no nausea vomiting. He still have diarrhea about 2-3 bouts per day, last one was this morning however he denies blood in it. He has little or no abdominal pain. Patient remains on IV antibiotics and IV fluids at 75 L/h. WBC 0.6 up to 0.8. Hemoglobin is 6.7, up to 9.9 and status post one unit of blood transfusion. Platelets 45 coming down to 36. His anticoagulation still on hold for history of left leg DVT, he was taken Eliquis at that time. Vital showing only tachycardia, no fever. His breathing quietly. However we cannot rule out sepsis and need follow-up the cultures. Patient denies coughing or chest pain or active bleeding. No dyspnea. Iron study showing anemia of chronic disease. Vitamin B-12 is high. Liver enzymes within normal limits. Oncology team are following the patient 08/25/2018 Patient clinically looks the same as yesterday, no abdominal pain or nausea vomiting. Tolerating diet. He still have about 3 loose bowel movement from yesterday, with no blood. No fever and Vitas looks stable. No tachycardia. His CBC showing some improvement with WBC going up to 1.1, and platelets 3 minutes low at 35 and hemoglobin low at 8.2. Potassium 3.3. Creatinine 0.49. Hematology/oncology team follow-up is appreciated. Stool culture and WBC has been ordered. 08/26/2018 Patient gave doing well with no chest pain or dyspnea. No abdominal pain. No nausea vomiting. 13 diet well. He has 1-2 loose bowel movement yesterday which is improving even as per patient. Vitals are stable. WBC is significantly improved from 1.1 up to 4.9K. Hemoglobin is slightly improved at 8.6. Platelets 99. Patient remains of 0 for this reason. Potassium 3.2 which is replaced. Creatinine 0.5. FOBT is positive. PT evaluated the patient and recommended one more day physical therapy and patient agrees. Patient and planning to go to [place] for 6 weeks by this Friday and he has all the arrangements set up for him. Discussed the case with oncology team, patient can follow up with oncology when he comes back, and around 3 months. Patient also informed that he already contacted the [place] clinic and that he is going to follow-up with their office in [place]. Objective - Vital Signs Vital signs: Vital Signs Temp 97.9 F 08/26/18 12:08 Pulse 87 08/26/18 12:08 Resp 16 08/26/18 12:08 BP 125/62 08/26/18 12:08 Pulse Ox 98 08/26/18 12:08 Intake & Output 08/25/18 08/26/18 08/26/18 18:59 06:59 18:59 Intake Total 600 700 600 Balance 600 700 600 Weight 61.462 kg Intake: Intake, IV Titration 600 700 600 Amount Cefepime 1 gm In Sodium 50 100 Chloride 0.9% 50 ml @ 100 mls/hr IVPB Q12H [facility] Rx# :[id number] Sodium Chloride 0.9% 1, 550 600 600 000 ml @ 75 mls/hr IV . [id number] EMILY Rx#:[id number] Other: Voiding Method Toilet Toilet Toilet # Voids 1 # Bowel Movements 1 - Exam GENERAL: The patient is alert and oriented x3, not in any acute distress. Well developed, well nourished. HEENT: Pupils are round and equally reacting to light. EOMI. No scleral icterus. No conjunctival pallor. Normocephalic, atraumatic. No pharyngeal erythema. No thyromegaly. CARDIOVASCULAR: S1 and S2 present. No murmurs, rubs, or gallops. PULMONARY: Chest is clear to auscultation, no wheezing or crackles. ABDOMEN: Soft, nontender, nondistended, normoactive bowel sounds. No palpable organomegaly. MUSCULOSKELETAL: No joint swelling or deformity. EXTREMITIES: No cyanosis, clubbing, or pedal edema. NEUROLOGICAL: Gross neurological examination did not reveal any focal deficits. SKIN: No rashes. - Labs CBC & Chem 7: 08/26/18 07:14 08/26/18 07:14 Labs: Abnormal Lab Results - Last 24 Hours (Table) 08/26/18 08/26/18 Range/Units 07:14 07:14 RBC 2.96 L (4.30-5.90) m/uL Hgb 8.6 L (13.0-17.5) gm/dL Hct 27.4 L (39.0-53.0) % RDW 18.5 H (11.5-15.5) % Plt Count 39 L (150-450) k/uL Lymphocytes # (Manual) 0.44 L (1.0-4.8) k/uL Monocytes # (Manual) 1.27 H (0-1.0) k/uL Metamyelocytes # (Man) 0.05 H (0) k/uL Myelocytes # (Manual) 0.10 H (0) k/uL Potassium 3.2 L (3.5-5.1) mmol/L Chloride 112 H (98-107) mmol/L Carbon Dioxide 19 L (22-30) mmol/L BUN <2 L (9-20) mg/dL Creatinine 0.50 L (0.66-1.25) mg/dL Calcium 7.6 L (8.4-10.2) mg/dL Microbiology - Last 24 Hours (Table) 08/21/18 11:10 Blood Culture - Preliminary Blood No Growth after 120 hours Assessment and Plan Assessment: Systemic inflammatory response syndrome, with tachycardia and tachypnea on admission, currently only mild tachycardia. Rule out sepsis Pancytopenia, mostly secondary to chemotherapy Recent history of Left lower extremity DVT diagnosed on 08/12/2018. Currently off anticoagulation for thrombocytopenia. He was in an L Eliquis Anemia with hemoglobin 6.3. Patient was transferred with 2 unit PRBC on 2018 and 08/23/2018 Neutropenia and thrombocytopenia Pancreatic a dull carcinoma status post recent chemotherapy DVT prophylaxis. Eliquis on hold for thrombocytopenia. GI prophylaxis, on Protonix Plan: Patient will be continued on broad-spectrum antibiotics in the form of vancomycin and cefepime until cultures are negative, switch vancomycin to pharmacy to dose.. Continue with IV hydration. Monitor CBC. Follow blood culture reports. Stool for C. diff toxin was ordered. Continue to follow closely. Oncology is on board. Further recommendations based on the clinical course.
[2018-08-26] MEDS ORDERED: VANCOMYCIN TROUGH DUE 1 EACH MISC MISCELLANE ONE (15:00)
[2018-08-26] MEDS: LIPASE 5,000/PROTEASE 17,000/AMYLASE 24,000 PO SCH (17:11)
[2018-08-26] MEDS: FILGRASTIM-SNDZ 480 MCG/0.8 ML SYRINGE SQ SCH (17:11)
--- NOTE | 2018-08-26 18:47 | P.PN ---
Subjective Progress Note Date: 08/26/18 Principal diagnosis: Pancreatic adeno, completed adjuvant chemo Pt seen in f/u, stool neg for c-diff, ANC 2.9, 1 BM today, not watery, no cramping. Pt is feeling better. Objective - Vital Signs Vital signs: Vital Signs Temp 97.9 F 08/26/18 12:08 Pulse 87 08/26/18 12:08 Resp 16 08/26/18 12:08 BP 125/62 08/26/18 12:08 Pulse Ox 98 08/26/18 12:08 Intake & Output 08/25/18 08/26/18 08/26/18 18:59 06:59 18:59 Intake Total 600 700 600 Balance 600 700 600 Weight 61.462 kg Intake: Intake, IV Titration 600 700 600 Amount Cefepime 1 gm In Sodium 50 100 Chloride 0.9% 50 ml @ 100 mls/hr IVPB Q12H EMILY Rx# :[id number] Sodium Chloride 0.9% 1, 550 600 600 000 ml @ 75 mls/hr IV . [id number] EMILY Rx#:[id number] Other: Voiding Method Toilet Toilet Toilet # Voids 1 # Bowel Movements 1 - Constitutional General appearance: Present: cooperative, no acute distress, thin - EENT Eyes: Present: anicteric sclerae, EOMI ENT: Present: hearing grossly normal - Respiratory Respiratory: bilateral: CTA - Cardiovascular Rhythm: regular Heart sounds: normal: S1, S2 Abnormal Heart Sounds: Absent: systolic murmur, diastolic murmur, rub, S3 Gallop , S4 Gallop, click, other - Peripheral edema leg Peripheral Edema: bilateral: None - Gastrointestinal General gastrointestinal: Present: normal bowel sounds, soft. Absent: absent bowel sounds, decreased bowel sounds, distended, hepatomegaly, hyperactive bowel sounds, organomegaly, rigid, scaphoid, splenomegaly, tenderness, umbilical hernia, ventral hernia - Neurologic Neurologic: Present: CNII-XII intact - Musculoskeletal Musculoskeletal: Present: strength equal bilaterally - Psychiatric Psychiatric: Present: A&O x's 3, appropriate affect, intact judgment & insight - Labs CBC & Chem 7: 08/26/18 07:14 08/26/18 07:14 Labs: Abnormal Lab Results - Last 24 Hours (Table) 08/26/18 08/26/18 Range/Units 07:14 07:14 RBC 2.96 L (4.30-5.90) m/uL Hgb 8.6 L (13.0-17.5) gm/dL Hct 27.4 L (39.0-53.0) % RDW 18.5 H (11.5-15.5) % Plt Count 39 L (150-450) k/uL Lymphocytes # (Manual) 0.44 L (1.0-4.8) k/uL Monocytes # (Manual) 1.27 H (0-1.0) k/uL Metamyelocytes # (Man) 0.05 H (0) k/uL Myelocytes # (Manual) 0.10 H (0) k/uL Potassium 3.2 L (3.5-5.1) mmol/L Chloride 112 H (98-107) mmol/L Carbon Dioxide 19 L (22-30) mmol/L BUN <2 L (9-20) mg/dL Creatinine 0.50 L (0.66-1.25) mg/dL Calcium 7.6 L (8.4-10.2) mg/dL Microbiology - Last 24 Hours (Table) 08/21/18 11:10 Blood Culture - Preliminary Blood No Growth after 120 hours Assessment and Plan (1) Pancytopenia due to antineoplastic chemotherapy Narrative/Plan: Cultures negative > 24 hours, no fevers Cont GCSF for ANC 2.9, DC after AM dose Hgb stable, no transfusion Plt still low but stable, no transfusion needed. Cannot resume anticoagulation for DVT until plt>50,000 Current Visit: Yes Status: Acute Priority: High Code(s): D61.810 - ANTINEOPLASTIC CHEMOTHERAPY INDUCED PANCYTOPENIA; T45.1X5A - ADVERSE EFFECT OF ANTINEOPLASTIC AND IMMUNOSUP DRUGS, INIT SNOMED Code(s): 744485670494570 (2) Diarrhea Narrative/Plan: C-diff neg, decreased frequency today, some solid components to stool, no other cramping. Cont antidiarrheals Current Visit: Yes Status: Acute Priority: High Code(s): R19.7 - DIARRHEA , UNSPECIFIED SNOMED Code(s): 26340114 (3) Cancer of pancreas Narrative/Plan: Completed treatment and had surgery! Pt is on 3 mon f/u at this time Current Visit: Yes Status: Chronic Priority: Medium Code(s): C25.9 - MALIGNANT NEOPLASM OF PANCREAS, UNSPECIFIED SNOMED Code(s): 342894944 (4) Neutropenic typhlitis Narrative/Plan: Improved clinically, diet increased to full liquid, did speak with Dietitian for supplement Current Visit: Yes Status: Acute Priority: High Code(s): K36 - OTHER APPENDICITIS SNOMED Code(s): 6458608 (5) Deep vein thrombosis Narrative/Plan: Diagnosed Jun 2018. Pt needs to resume anticoagulation when plt are >50,000. He is planning on going to [place] Friday. He will be given CBC Rx with instructions to resume eliquis once plt >50,000. He did verbalize understanding instructions. Current Visit: Yes Status: Acute Priority: High Code(s): I82.409 - ACUTE EMBOLISM AND THOMBOS UNSP DEEP VN UNSP LOWER EXTREMITY SNOMED Code(s): 337968521 Plan: Ok from Hem/Onc standpoint to DC in AM once cleared by Attending and other Consults
[2018-08-26 21:13] VITALS: TEMP 97.8
[2018-08-26] MEDS: DOXAZOSIN 4 MG TAB PO SCH (22:14)
[2018-08-27] MEDS: CEFEPIME 1 GM in SODIUM CHLORIDE 0.9% 50 ML IVPB SCH ×2 (00:58→13:09)
[2018-08-27] MEDS: SODIUM CHLORIDE 0.9% 1,000 ML IV SCH ×2 (00:58→13:17)
[2018-08-27] MEDS: VANCOMYCIN 1,250 MG in SODIUM CHLORIDE 0.9% 250 ML IVPB SCH (04:25)
[2018-08-27 05:27] VITALS: BP 105/52; PULSE 90; RESP 16
[2018-08-27] MEDS: FINASTERIDE 5 MG TAB PO SCH (07:48)
[2018-08-27] MEDS: METOPROLOL TARTRATE 25 MG TAB PO SCH (07:54)
[2018-08-27] MEDS: GABAPENTIN 100 MG CAP PO SCH (07:54)
[2018-08-27] MEDS: ALLOPURINOL 300 MG TAB PO SCH (07:55)
[2018-08-27] MEDS: POTASSIUM CHLORIDE ER 20 MEQ TAB.ER PO SCH (07:55)
[2018-08-27] MEDS: PANTOPRAZOLE 40 MG TABLET PO SCH (07:55)
[2018-08-27 09:13] LABS: Anisocytosis Slight; HCT 28.8 % (39.0-53.0); HGB 9.3 gm/dL (13.0-17.5); Hypochromasia Moderate; MCH 29.8 pg (25.0-35.0); MCHC 32.4 g/dL (31.0-37.0); MCV 92.2 fL (80.0-100.0); Macrocytosis Slight; Mean Platelet Volume 9.6; Poikilocytosis Slight; RBC 3.13 m/uL (4.30-5.90); RDW 19.4 % (11.5-15.5)
[2018-08-27 09:15] LABS: Platelet Count 65 k/uL (150-450)
[2018-08-27 09:27] LABS: Anion Gap 5 mmol/L; Blood Urea Nitrogen <2 mg/dL (9-20); Calcium 7.7 mg/dL (8.4-10.2); Carbon Dioxide 19 mmol/L (22-30); Chloride 114 mmol/L (98-107); Glucose 99 mg/dL (74-99); Sodium 138 mmol/L (137-145)
[2018-08-27 10:26] LABS: Band Neutrophils % 7 %; Eosinophils # (M) 0.18 k/uL (0-0.7); Metamyelocytes # (M) 0.18 k/uL (0); Metamyelocytes % 1 %; Myelocytes # (M) 0.36 k/uL (0); Myelocytes % 2 %; Neutrophils % (M) 73 %; Nucleated Red Blood Cells 1 /100 WBC (0-0); Total Cells Counted 200
[2018-08-27 10:27] LABS: Monocytes # (M) 2.34 k/uL (0-1.0)
[2018-08-27 10:28] LABS: Polychromasia Present
--- NOTE | 2018-08-27 12:56 | P.DS ---
Providers Date of admission: 08/21/18 13:15 Attending physician: Juan Manuel Elizondo Consults: 08/21/18 12:23 Consult Physician Routine Consulting Provider: Brandin Velasco Consult Reason/Comments: cancer Do you want consulting provider notified?: Yes Primary care physician: [facility] Hospital Course: Diagnoses: Systemic inflammatory response syndrome, with tachycardia and tachypnea on admission, possible sepsis. Improved Pancytopenia, mostly secondary to chemotherapy. Diarrhea. Resolved Recent history of Left lower extremity DVT diagnosed on 08/12/2018. He was in on Eliquis which could be continued as long as platelets count more than 50,000 Anemia with hemoglobin 6.3. Patient was transferred with 2 unit PRBC on 2018 and 08/23/2018 Leukocytosis, mostly due to the effect of growth factors Pancreatic a dull carcinoma status post recent chemotherapy. Needs oncology follow-up in 3 months Hospital course: Patient is a 78-year-old male with a known history of pancreatic cancer with recent chemotherapy on 08/18/[address] Velasco's office due to concern for possible infection and also pancytopenia. Patient was initially diagnosed with pancreatic cancer in August 2017. Patient was seen in the clinic on with leg pain and swelling and was diagnosed with left lower extremity DVT and is currently on anticoagulation. Patient was treated with antibiotics, vancomycin and cefepime in view of his diarrhea and pancytopenia. Patient also received filgrastim. His diarrhea improved and he had 1 semi-solid bowel movement on the day of discharge. No abdominal cramps no nausea vomiting and he is eating well with no problems. The patient was cleared medically for discharge from yesterday however he needed 1 more day for physical therapy. Patient will be provided with a walker upon discharge. Patient is planning to go to [place] for 6 weeks. He will follow up with the [place] [facility] [place] and he already contacted them as per him. Patient will follow up with the oncology team when he returns back to [place] in 2-3 months according to their recommendation. Patient was cleared by oncology team for discharge Problems and management plan was discussed with the patient and he verbalized understanding and acceptance Patient was found stable and can be discharged home however he needs follow-up as an outpatient. Patient states that he will make his on appointments with the [facility] and [place], he told me he already contacted the [place] clinic and he has the contact information. Also he is going to follow up with oncology team with Dr. Velasco as instructed. Patient also told me he has a walker at home and he did not need a prescription, patient encouraged to use a walker while ambulation. Also he told me he has Eliquis at home and he did not need prescription, patient was instructed to start using the Eliquis again. Gen: patient is a AAOx3, no distress CVS: S1-S2, RRR, no murmur Lungs: B/L CTA, no wheezing Abdomen: soft, no distention, no tenderness, positive bowel sounds Extremity: no leg edema or induration Time spent more than 35 minutes Patient Condition at Discharge: Fair Plan - Discharge Summary Discharge Rx Participant: No New Discharge Prescriptions: New Amoxicillin/Potassium Clav [Augmentin 875-125 Tablet] 1 tab PO Q12HR 2 Days # 4 tab Loperamide [Imodium] 4 mg PO Q6H PRN #8 cap PRN Reason: Diarrhea Continue Terazosin [Hytrin] 6 mg PO HS Sildenafil Citrate [Viagra] 100 mg PO ONCE Pantoprazole [Protonix] 40 mg PO DAILY Creon 10,000 E.C. 1 cap PO AC-SUPPER Metoprolol Tartrate 25 mg PO BID Gabapentin [Neurontin] 100 mg PO BID Finasteride [Proscar] 5 mg PO DAILY Apixaban [Eliquis] 5 mg PO BID Allopurinol [Zyloprim] 300 mg PO DAILY Discontinued Ranitidine HCl 150 mg PO HS Ibuprofen [Motrin] 600 mg PO TID PRN PRN Reason: Pain Cefuroxime [Ceftin] 250 mg PO BID Discharge Medication List Allopurinol [Zyloprim] 300 mg PO DAILY 08/21/18 [History] Apixaban [Eliquis] 5 mg PO BID 08/21/18 [History] Creon 10,000 E.C. 1 cap PO AC-SUPPER 08/21/18 [History] Finasteride [Proscar] 5 mg PO DAILY 08/21/18 [History] Gabapentin [Neurontin] 100 mg PO BID 08/21/18 [History] Metoprolol Tartrate 25 mg PO BID 08/21/18 [History] Pantoprazole [Protonix] 40 mg PO DAILY 08/21/18 [History] Sildenafil Citrate [Viagra] 100 mg PO ONCE 08/21/18 [History] Terazosin [Hytrin] 6 mg PO HS 08/21/18 [History] Amoxicillin/Potassium Clav [Augmentin 875-125 Tablet] 1 tab PO Q12HR 2 Days #4 tab 08/27/18 [Rx] Loperamide [Imodium] 4 mg PO Q6H PRN #8 cap 08/27/18 [Rx] Follow up Appointment(s)/Referral(s): Brandin Velasco MD [STAFF PHYSICIAN] - 6 Weeks (Call for a 3 month follow up (October 2018). Contact office for orders prior to visit.) [facility],Clinic [Primary Care Provider] - 1-2 days (Patient prefers to call for own appt. Will be traveling to [place] tomorrow, August. ) Activity/Diet/Wound Care/Special Instructions: PATIENT WANTS FLU VACCINE AT TIME OF DISCHARGE Regular diet Activity is limited till you see your doctor , place using her walker on ambulation Discharge Disposition: HOME SELF-CARE
[2018-08-27] MEDS ORDERED: APIXABAN 5 MG TAB PO SCH (13:00)
--- NOTE | 2018-08-27 14:42 | P.PN ---
Subjective Progress Note Date: 08/27/18 Principal diagnosis: Pancreatic adeno, completed adjuvant chemo Pt seen in f/u, case discussed with attending. Pt feels good, no BM today, 1 BM yesterday that did have some form, no abd cramping, bloody or mucus stool, pt feels good, ambulatory Objective - Vital Signs Vital signs: Vital Signs Temp 97.8 F 08/27/18 05:00 Pulse 90 08/27/18 05:00 Resp 16 08/27/18 05:00 BP 105/52 08/27/18 05:00 Pulse Ox 94 L 08/27/18 05:00 Intake & Output 08/26/18 08/27/18 08/27/18 18:59 06:59 18:59 Intake Total 600 1050 Balance 600 1050 Weight 61.462 kg Intake: Intake, IV Titration 600 1050 Amount Cefepime 1 gm In Sodium 100 Chloride 0.9% 50 ml @ 100 mls/hr IVPB Q12H EMILY Rx# :[id number] Sodium Chloride 0.9% 1, 600 450 000 ml @ 75 mls/hr IV . [id number] EMILY Rx#:[id number] Vancomycin 1,250 mg In 500 Sodium Chloride 0.9% 250 ml @ 125 mls/hr IVPB Q12H EMILY Rx#:[id number] Other: Voiding Method Toilet Toilet Toilet # Bowel Movements 1 - Constitutional General appearance: Present: cooperative, no acute distress, thin - EENT Eyes: Present: anicteric sclerae, EOMI ENT: Present: hearing grossly normal - Respiratory Respiratory: bilateral: CTA - Cardiovascular Heart sounds: normal: S1, S2 - Peripheral edema leg Peripheral Edema: bilateral: None - Gastrointestinal General gastrointestinal: Present: normal bowel sounds, soft. Absent: absent bowel sounds, decreased bowel sounds, distended, hepatomegaly, hyperactive bowel sounds, organomegaly, rigid, scaphoid, splenomegaly, tenderness, umbilical hernia, ventral hernia - Integumentary Integumentary: Present: pale - Neurologic Neurologic: Present: CNII-XII intact - Musculoskeletal Musculoskeletal: Present: strength equal bilaterally - Psychiatric Psychiatric: Present: A&O x's 3, appropriate affect, intact judgment & insight - Labs CBC & Chem 7: 08/27/18 08:43 08/27/18 08:43 Labs: Abnormal Lab Results - Last 24 Hours (Table) 08/26/18 08/27/18 08/27/18 Range/Units 11:00 08:43 08:43 WBC 18.0 H (3.8-10.6) k/uL RBC 3.13 L (4.30-5.90) m/uL Hgb 9.3 L (13.0-17.5) gm/dL Hct 28.8 L (39.0-53.0) % RDW 19.4 H (11.5-15.5) % Plt Count 65 L D (150-450) k/uL Neutrophils # (Manual) 14.40 H (1.3-7.7) k/uL Lymphocytes # (Manual) 0.90 L (1.0-4.8) k/uL Monocytes # (Manual) 2.34 H (0-1.0) k/uL Metamyelocytes # (Man) 0.18 H (0) k/uL Myelocytes # (Manual) 0.36 H (0) k/uL Nucleated RBCs 1 H (0-0) /100 WBC Chloride 114 H (98-107) mmol/L Carbon Dioxide 19 L (22-30) mmol/L BUN <2 L (9-20) mg/dL Creatinine 0.47 L (0.66-1.25) mg/dL Calcium 7.7 L (8.4-10.2) mg/dL Stool Lactoferrin POSITIVE H (NEGATIVE) Microbiology - Last 24 Hours (Table) 08/21/18 11:10 Blood Culture - Final Blood No Growth after 144 hours 08/26/18 11:00 Stool Culture - Preliminary Stool Assessment and Plan (1) Pancytopenia due to antineoplastic chemotherapy Narrative/Plan: WBC recovered with GCSF, this has been discontinued Hgb stable Platelets improved, >50,000, pt can resume his anticoagulation for DVT diagnosed in Dec Status: Acute Priority: High Code(s): D61.810 - ANTINEOPLASTIC CHEMOTHERAPY INDUCED PANCYTOPENIA; T45.1X5A - ADVERSE EFFECT OF ANTINEOPLASTIC AND IMMUNOSUP DRUGS, INIT SNOMED Code(s): 636200587996489 (2) Diarrhea Narrative/Plan: Nearly resolved. Suspect r/t neutropenia, no c-diff. Status: Acute Priority: High Code(s): R19.7 - DIARRHEA, UNSPECIFIED SNOMED Code(s): 35658577 (3) Cancer of pancreas Narrative/Plan: Completed treatment and had surgery! Pt is on 3 month f/u at this time. Discharge instructions are for call for orders for scans then f/u with Dr. Velasco 3 -5 days later Status: Chronic Priority: Medium Code(s): C25.9 - MALIGNANT NEOPLASM OF PANCREAS, UNSPECIFIED SNOMED Code(s): 295496275 (4) Neutropenic typhlitis Status: Resolved Priority: High Code(s): K36 - OTHER APPENDICITIS SNOMED Code(s): 7186236 (5) Deep vein thrombosis Narrative/Plan: Ok to resume anticoagulation, plt >50K today Status: Acute Priority: High Code(s): I82.409 - ACUTE EMBOLISM AND THOMBOS UNSP DEEP VN UNSP LOWER EXTREMITY SNOMED Code(s): 768483049 Plan: Ok from Hem/Onc standpoint to DC'd
[2018-08-27] MEDS ORDERED: VANCOMYCIN 1,250 MG in SODIUM CHLORIDE 0.9% 250 ML IVPB SCH (20:00)
== END 2018-08-27 13:45 | disposition home or self-care (01) | DRG 871 ==
LOC: EC 10:01 → 3NMEDONC 13:15
PROVIDERS: ADMIT Internal Medicine; ATTEND Internal Medicine
PROC: 30233N1 Transfusion of Nonautologous Red Blood Cells into Peripheral Vein, Percutaneous Approach (ICD-10-PCS; principal; 2018-08-21)
DX: A41.9 Sepsis, unspecified organism (principal); D61.810 Antineoplastic chemotherapy induced pancytopenia; C25.9 Malignant neoplasm of pancreas, unspecified; I82.402 Acute embolism and thrombosis of unspecified deep veins of left lower extremity; D70.9 Neutropenia, unspecified; G62.9 Polyneuropathy, unspecified; R50.81 Fever presenting with conditions classified elsewhere; D63.0 Anemia in neoplastic disease; E87.6 Hypokalemia; I10 Essential (primary) hypertension; K21.9 Gastro-esophageal reflux disease without esophagitis; K36 Other appendicitis; K52.89 Other specified noninfective gastroenteritis and colitis; T45.1X5A Adverse effect of antineoplastic and immunosuppressive drugs, initial encounter; T38.815A Adverse effect of anterior pituitary [adenohypophyseal] hormones, initial encounter; D72.829 Elevated white blood cell count, unspecified; Z79.01 Long term (current) use of anticoagulants; Z79.899 Other long term (current) drug therapy; Z85.828 Personal history of other malignant neoplasm of skin; Z85.46 Personal history of malignant neoplasm of prostate
CPT/HCPCS: 36415; 71046; 80048; 80053; 80202; 81003; 82272; 82607; 82728; 83540; 83550; 83605; 83615; 83630; 83735; 83921; 84484; 85025; 85045; 85610; 85730; 86850; 86900; 86901; 86920; 87040; 87045; 87046; 87324; 87502; 93005; 96361; 96365; 99285

== ENCOUNTER 2018-10-12 13:16 | Day surgery (SDC) | payer OTHER ==
[2018-10-12 14:02] VITALS: RESP 20; TEMP 97.4
[2018-10-12 14:04] LABS: Mean Platelet Volume 8.9
[2018-10-12 14:10] LABS: INR 1.7 (<1.2); Prothrombin Time 16.6 sec (9.0-12.0)
[2018-10-12 14:18] LABS: Platelet Count 119 k/uL (150-450)
[2018-10-12 15:16] VITALS: BP 107/59; PULSE 86
--- NOTE | 2018-10-13 08:05 | US ---
EXAMINATION TYPE: US paracentesis abd w/image DATE OF EXAM: 10/12/2018 COMPARISON: NONE HISTORY: Ascites. PROCEDURE: Maximal barrier technique was utilized. The skin overlying a suitable pocket of fluid was localized with ultrasound and the overlying skin was prepped and draped. Ultrasound was utilized with sterile technique. Lidocaine was used for local anesthesia and a skin sharon made with a scalpel. Catheter was advanced under direct ultrasound guidance into a suitable pocket of fluid and approximately 3.9 liter s of serous fluid were removed. Catheter was withdrawn and hemostasis achieved. There is no immedia te complication; the patient is discharged in stable condition. IMPRESSION: STATUS POST ULTRASOUND GUIDED PARACENTESIS FOR PALLIATION OF ASCITES. THIS PROCEDURE WA S PERFORMED BY THE UNDERSIGNED. Specimen sent for laboratory analysis.
== END 2018-10-12 15:35 | disposition home or self-care (01) ==
LOC: RADPROMAIN 13:16
PROVIDERS: ATTEND Internal Medicine Hematology & Oncology
DX: R18.8 Other ascites (principal); C25.0 Malignant neoplasm of head of pancreas; Z80.7 Family history of other malignant neoplasms of lymphoid, hematopoietic and related tissues; Z80.0 Family history of malignant neoplasm of digestive organs; Z79.01 Long term (current) use of anticoagulants; Z79.891 Long term (current) use of opiate analgesic; Z79.899 Other long term (current) drug therapy; G60.8 Other hereditary and idiopathic neuropathies; I10 Essential (primary) hypertension
CPT/HCPCS: 36415; 49083; 82042; 85049; 85610

== ENCOUNTER → 2018-10-17 | Outpatient (CLI) | payer OTHER ==
--- NOTE | 2018-10-17 16:08 | PE ---
EXAMINATION TYPE: PET CT fusion skull to thigh DATE OF EXAM: 10/17/2018 COMPARISON: CTA chest August 12, 2018. CT chest abdomen pelvis April 01, 2018. HISTORY: History of pancreatic cancer diagnosed September 02, 2017 with radiation treatment through Feb and chemotherapy through August 18, 2018. History of prior surgery. TECHNIQUE: Following the intravenous administration of 11.48 mCi of F-18 FDG, whole body images are performed from the skull base to the midthigh. Images are reviewed on the computer in the coronal, a xial, and sagittal planes. Reconstructed rotating images are created on independent workstation and reviewed on the computer. A noncontrast CT is performed in conjunction with the PET scan. SCAN: Subsequent Scan FINDINGS: SKULL BASE AND NECK: No areas of suspicious hypermetabolic uptake. CHEST, MEDIASTINUM, AND HILAR REGION: There are moderate to large right greater than left pleural eff usions significant increased in size from most recent CTA chest August 12, 2018. No suspicious hyper metabolic uptake in effusions or remainder of the thorax is identified. ABDOMEN AND PELVIS: Since prior abdominal CTs there has been interval surgery multiple sutures identi fied at level of pancreatic head and body and epigastric region. There is redemonstration of marked f atty infiltration of liver with surrounding ascites noted. There is curvilinear hypermetabolic focus axial image 132 along posterior aspect of the transverse colon of uncertain significance, max SUV is 7.25. No suspicious corresponding soft tissue nodularity or obvious residual pancreatic tissue is see n. Pancreas is now surgically absent. No additional areas of suspicious hypermetabolic uptake are identified. There is fairly moderate to severe recurrent abdominal and pelvic ascites without hypermetabolic uptake despite paracentesis perf ormed 5 days earlier. OSSEOUS STRUCTURES: No suspicious hypermetabolic uptake is present. OTHER CT: Tiny pericardial effusion is seen. There is fairly moderate diffuse soft tissue anasarca of the abdomen and pelvis extending into bilate ral groin regions. There is right inguinal hernia containing ascites noted. There is moderate multilevel spurring in the spine. There is mild to moderate calcified plaque of aor ta extending into branch vessels. IMPRESSION: 1. Recurrent moderate to large abdominal and pelvic ascites despite paracentesis performed 5 days ear lier. New moderate to large right slightly larger than left pleural effusions are present. All fluid collections appear ametabolic. 2. Interval Whipple procedure, curvilinear uptake along posterior margin of transverse colon near sit e of surgery without suspicious soft tissue favors inflammation or infection. No convincing evidence of residual hypermetabolic mass or adenopathy to suggest residual or metastatic malignancy.
== END | disposition home or self-care (01) ==
LOC: RADPETMAIN 12:11
PROVIDERS: ATTEND Internal Medicine Hematology & Oncology
DX: C25.0 Malignant neoplasm of head of pancreas (principal); J90 Pleural effusion, not elsewhere classified
CPT/HCPCS: 78815; A9552

== ENCOUNTER → 2018-10-23 | Outpatient (CLI) | payer OTHER ==
--- NOTE | 2018-10-23 14:07 | US ---
EXAMINATION TYPE: US venous doppler duplex UE RT DATE OF EXAM: 10/23/2018 COMPARISON: NONE CLINICAL HISTORY: M79.621 pain in R upper limb, C25.0 Pancreatic ca. SIDE PERFORMED: right The basilic and cephalic are full of thrombus and noncompressible in the entire length of upper arm. Positive for SVT. Right Arm: Negative for DVT Grayscale, color doppler, spectral doppler imaging performed of the deep veins of the right upper ext remity. There is normal flow, compressibility and vascular waveforms of the deep veins of the right upper extremity. IMPRESSION: Positive superficial venous thrombosis within the entirety of the visualized basilic and cephalic veins. No sonographic evidence of deep venous thrombosis in the right upper extremity.
== END | disposition home or self-care (01) ==
LOC: RADUSWWP 13:02
PROVIDERS: ATTEND Internal Medicine Hematology & Oncology
DX: I82.611 Acute embolism and thrombosis of superficial veins of right upper extremity (principal); C25.0 Malignant neoplasm of head of pancreas

== ENCOUNTER 2018-10-26 08:57 | Day surgery (SDC) | payer OTHER ==
[2018-10-26 10:01] LABS: Mean Platelet Volume 8.7
[2018-10-26 10:07] LABS: INR 1.8 (<1.2); Prothrombin Time 17.9 sec (9.0-12.0)
[2018-10-26 10:21] LABS: Platelet Count 85 k/uL (150-450)
[2018-10-26 11:43] VITALS: BP 105/68; PULSE 74; RESP 18
--- NOTE | 2018-10-26 12:48 | US ---
Therapeutic paracentesis. DATE OF EXAM: 10/26/2018 CLINICAL HISTORY: Ascites The procedure was discussed with the patient. The risks, complications, benefits, and alternatives we re discussed and any questions were answered. Informed consent was obtained. The patient was placed s upine on the ultrasound table and prepped and draped in the usual sterile fashion. All elements of maximal barrier technique were utilized. Under ultrasound guidance, access into the right lower quadrant was obtained, via the paracentesis catheter system and direct ultrasound guidanc e. Approximately 5.36 liters of straw-colored fluid was removed. The patient was stable throughout the p rocedure and remained stable upon discharge from Department of Radiology. IMPRESSION: Successful therapeutic paracentesis under ultrasound guidance.
== END 2018-10-26 11:30 | disposition home or self-care (01) ==
LOC: RADPROMAIN 08:57
PROVIDERS: ATTEND Internal Medicine Hematology & Oncology
DX: R18.8 Other ascites (principal)
CPT/HCPCS: 36415; 49083; 82042; 85049; 85610; 88108; 88305; 88341; 88342

== ENCOUNTER 2018-11-06 12:18 | Day surgery (SDC) | payer OTHER ==
[2018-11-06 13:07] VITALS: TEMP 97.7
[2018-11-06 14:02] LABS: Mean Platelet Volume 8.6
[2018-11-06 14:04] LABS: Platelet Count 98 k/uL (150-450)
[2018-11-06 14:07] LABS: INR 1.5 (<1.2); Prothrombin Time 15.1 sec (9.0-12.0)
[2018-11-06 16:10] VITALS: BP 96/60; PULSE 90; RESP 16
--- NOTE | 2018-11-06 21:02 | US ---
Therapeutic paracentesis. DATE OF EXAM: 11/06/2018 CLINICAL HISTORY: Ascites The procedure was discussed with the patient. The risks, complications, benefits, and alternatives we re discussed and any questions were answered. Informed consent was obtained. The patient was placed s upine on the ultrasound table and prepped and draped in the usual sterile fashion. All elements of maximal barrier technique were utilized. Under ultrasound guidance, access into the left lower quadrant was obtained, via the paracentesis catheter system and direct ultrasound guidance . Approximately 7.2 liters of straw-colored fluid was removed. The patient was stable throughout the pr ocedure and remained stable upon discharge from Department of Radiology. IMPRESSION: Successful therapeutic paracentesis under ultrasound guidance.
== END 2018-11-06 16:05 | disposition home or self-care (01) ==
LOC: RADPROMAIN 12:18
PROVIDERS: ATTEND Internal Medicine Hematology & Oncology
DX: R18.8 Other ascites (principal)
CPT/HCPCS: 49083; 82565; 85049; 85610

== ENCOUNTER 2018-11-20 12:12 | Day surgery (SDC) | payer OTHER ==
[2018-11-20 12:49] LABS: Mean Platelet Volume 7.6; Platelet Count 126 k/uL (150-450)
[2018-11-20 13:05] VITALS: TEMP 97.6
[2018-11-20 13:09] LABS: INR 1.6 (<1.2); Prothrombin Time 15.6 sec (9.0-12.0)
[2018-11-20 16:28] VITALS: BP 100/58; PULSE 98; RESP 14
--- NOTE | 2018-11-21 10:03 | US ---
EXAMINATION TYPE: US paracentesis abd w/image DATE OF EXAM: 11/20/2018 COMPARISON: NONE HISTORY: Ascites. PROCEDURE: Maximal barrier technique was utilized. The skin overlying a suitable pocket of fluid was localized with ultrasound and the overlying skin was prepped and draped. Ultrasound was utilized with sterile technique. Lidocaine was used for local anesthesia and a skin sharon made with a scalpel. Catheter was advanced under direct ultrasound guidance into a suitable pocket of fluid and approximately 7.3 liter s of serous fluid were removed. Catheter was withdrawn and hemostasis achieved. There is no immedia te complication; the patient is discharged in stable condition. IMPRESSION: STATUS POST ULTRASOUND GUIDED PARACENTESIS FOR PALLIATION OF ASCITES. THIS PROCEDURE WA S PERFORMED BY THE UNDERSIGNED.
== END 2018-11-20 15:55 | disposition home or self-care (01) ==
LOC: RADPROMAIN 12:12
PROVIDERS: ATTEND Internal Medicine Hematology & Oncology
DX: R18.8 Other ascites (principal)
CPT/HCPCS: 49083; 82565; 85049; 85610

== ENCOUNTER 2018-12-02 12:22 | Day surgery (SDC) | payer OTHER ==
[2018-12-02 13:26] LABS: Mean Platelet Volume 8.4; Platelet Count 151 k/uL (150-450)
[2018-12-02 13:28] VITALS: TEMP 96.9
[2018-12-02 14:32] LABS: INR 1.8 (<1.2); Prothrombin Time 17.5 sec (9.0-12.0)
[2018-12-02 14:42] VITALS: RESP 16
--- NOTE | 2018-12-02 15:16 | US ---
EXAMINATION TYPE: US guide vascular access DATE OF EXAM: 12/02/2018 HISTORY: Needs IV access paracentesis and for blood draw prior to procedure. There have been Multiple failed intravenous access attempts by previous workers in the hospital PROCEDURE: Initial failed attempt at ultrasound-guided venipuncture of the left basilic vein. Maximal barrier technique utilized. The skin overlying the left basilic vein was localized with ultrasound a nd the vein was noted to be compressible and patent by ultrasound and ultrasound image was obtained a nd submitted on patient' s chart. Under direct ultrasound guidance a 20-gauge Angiocath was advanced into the vein and fixed in place. Catheter was aspirated and flushed with sterile saline. Hemostasis achieved. Catheter fixed in place. No immediate complication. IMPRESSION: Ultrasound-guided venipuncture, this procedure performed by the undersigned.
[2018-12-02 16:03] VITALS: BP 98/53; PULSE 80
--- NOTE | 2018-12-03 11:38 | US ---
Therapeutic paracentesis. DATE OF EXAM: 12/02/2018 CLINICAL HISTORY: ASCITES The procedure was discussed with the patient. The risks, complications, benefits, and alternatives we re discussed and any questions were answered. Informed consent was obtained. The patient was placed s upine on the ultrasound table and prepped and draped in the usual sterile fashion. All elements of maximal barrier technique were utilized. Under ultrasound guidance, access into the right lower quadrant was obtained, via the paracentesis catheter system and direct ultrasound guidanc e. Approximately 5.5 liters of straw-colored fluid was removed. The patient was stable throughout the pr ocedure and remained stable upon discharge from Department of Radiology. IMPRESSION: Successful therapeutic paracentesis under ultrasound guidance.
== END 2018-12-02 16:00 | disposition home or self-care (01) ==
LOC: RADPROMAIN 12:22
PROVIDERS: ATTEND Internal Medicine Hematology & Oncology
DX: R18.8 Other ascites (principal)
CPT/HCPCS: 49083; 76937; 82565; 85049; 85610

== ENCOUNTER 2018-12-11 10:50 | Inpatient (IN) | payer OTHER ==
[2018-12-11] MEDS ORDERED: SODIUM CHLORIDE 0.9% 1,000 ML IV STA (10:52)
--- NOTE | 2018-12-11 11:13 | ED ---
Weakness HPI - General Stated complaint: Weakness Time Seen by Provider: 12/11/18 10:52 Source: RN notes reviewed, old records reviewed - History of Present Illness Initial comments: This is a 72-year-old male the ER for evaluation. Patient presents for weakness. Patient was scheduled to have ascites drained today was unable to make it to appointments secondary to severe weakness unable to get out of bed. Patient has generalized pain very weak. History obtained from EMS. Patient very weak, somnolent. Patient does admit to being a DO NOT RESUSCITATE MD Complaint: generalized weakness -: days(s) Location: generalized Severity: severe Severity scale (1-10): 10 Consistency: constant Improves with: none Worsens with: none Context: recent illness, history of similar Associated Symptoms: confusion, loss of appetite, nausea/vomiting - Related Data Home Medications Medication Instructions Recorded Confirmed Apixaban [Eliquis] 5 mg PO BID 08/21/18 12/11/18 Finasteride [Proscar] 5 mg PO DAILY 08/21/18 12/11/18 Gabapentin [Neurontin] 200 mg PO BID 08/21/18 12/11/18 Metoprolol Tartrate 25 mg PO BID 08/21/18 12/11/18 Pantoprazole [Protonix] 40 mg PO DAILY 08/21/18 12/11/18 Terazosin [Hytrin] 6 mg PO HS 08/21/18 12/11/18 Allopurinol [Zyloprim] 300 mg PO DAILY 12/11/18 12/11/18 HYDROcodone/APAP 7.5-325MG [[place] 1 tab PO Q4H PRN 12/11/18 12/11/18 7.5-325] Lipase/Protease/Amylase [Zenpep Dr 2 cap PO DAILY 12/11/18 12/11/18 5,000 Unit Capsule] Magnesium Gluconate [Magonate] 500 mg PO DAILY 12/11/18 12/11/18 Multivitamins, Thera [Multivitamin 1 tab PO DAILY 12/11/18 12/11/18 (formulary)] Prochlorperazine Maleate 10 mg PO Q6H PRN 12/11/18 12/11/18 Ranitidine HCl 150 mg PO HS 12/11/18 12/11/18 Allergies Allergy/AdvReac Type Severity Reaction Status Date / Time No Known Allergies Allergy Verified 12/11/18 11:56 Review of Systems ROS Statement: Those systems with pertinent positive or pertinent negative responses have been documented in the HPI. ROS Other: All systems not noted in ROS Statement are negative. 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) pt stated "does'nt have gerd was put on rx as preventative" History of Any Multi-Drug Resistant Organisms: None Reported Past Surgical History: Orthopedic Surgery Additional Past Surgical History / Comment(s): tumor from pancreas removed 04/2018 at [facility], WHIPPLE PROCEDURE, ERCP with stent, squaomous cell skin ca removed from frederic ears, left thumb amputated and reattached, multiple paracentesis(states every 9 days) Past Anesthesia/Blood Transfusion Reactions: No Reported Reaction Additional Past Anesthesia/Blood Transfusion Reaction / Comment(s): pt stated has never received any blood transfusion in past Smoking Status: Never smoker - Past Family History Mother Family Medical History: Diabetes Mellitus Additional Family Medical History / Comment(s): gout Father Additional Family Medical History / Comment(s): had TB General Exam General appearance: alert, lethargic, in distress Head exam: Present: atraumatic, normocephalic, normal inspection Eye exam: Present: normal appearance, PERRL, EOMI. Absent: scleral icterus, conjunctival injection, periorbital swelling ENT exam: Present: normal exam, mucous membranes moist Neck exam: Present: normal inspection. Absent: tenderness, meningismus, lymphadenopathy Respiratory exam: Present: normal lung sounds bilaterally. Absent: respiratory distress, wheezes, rales, rhonchi, stridor Cardiovascular Exam: Present: normal rhythm, tachycardia, normal heart sounds. Absent: systolic murmur, diastolic murmur, rubs, gallop, clicks GI/Abdominal exam: Present: soft, normal bowel sounds. Absent: distended, tenderness, guarding, rebound, rigid Extremities exam: Present: normal inspection, full ROM, normal capillary refill. Absent: tenderness, pedal edema, joint swelling, calf tenderness Back exam: Present: normal inspection Neurological exam: Present: alert, oriented X3, CN II-XII intact Psychiatric exam: Present: normal affect, normal mood Skin exam: Present: warm, dry, intact, normal color. Absent: rash Course Vital Signs 12/11/18 12/11/18 12/11/18 10:52 11:22 12:13 Temperature 97.6 F Pulse Rate 122 H 112 H Pulse Rate [ Senior Animator ] Respiratory 20 22 Rate Blood Pressure 80/47 77/47 O2 Sat by Pulse 97 97 Oximetry 12/11/18 12/11/18 12/11/18 12:21 13:00 14:00 Temperature Pulse Rate 116 H Pulse Rate [ 120 H Senior Animator ] Respiratory 16 Rate Blood Pressure 89/49 93/53 O2 Sat by Pulse 96 Oximetry - Reevaluation(s) Reevaluation #1: 12/11/18 15:12 Medical record is reviewed, patient is made a DO NOT RESUSCITATE Reevaluation #2: 12/11/18 15:12 Patient with no significant improvement with fluids EKG Findings - EKG Comments: EKG Findings:: EKG shows sinus tach rate of 122, NC 136, QRS 70, QTc 401 Medical Decision Making - Medical Decision Making 72 male the ER for evasive severe weakness., Dehydration, pneumonia found an x- ray. Multiple electrode abnormalities. Patient will be placed on IV antibiotics - Lab Data Result diagrams: 12/11/18 11:52 12/11/18 11:52 Lab Results 12/11/18 12/11/18 12/11/18 Range/Units 11:52 11:52 11:52 WBC 6.5 (3.8-10.6) k/uL RBC 3.77 L (4.30-5.90) m/uL Hgb 12.1 L (13.0-17.5) gm/dL Hct 37.5 L (39.0-53.0) % MCV 99.3 (80.0-100.0) fL MCH 32.0 (25.0-35.0) pg MCHC 32.3 (31.0-37.0) g/dL RDW 16.3 H (11.5-15.5) % Plt Count 204 (150-450) k/uL Neutrophils % 87 % Lymphocytes % 5 % Monocytes % 7 % Eosinophils % 1 % Basophils % 0 % Neutrophils # 5.6 (1.3-7.7) k/uL Lymphocytes # 0.3 L (1.0-4.8) k/uL Monocytes # 0.5 (0-1.0) k/uL Eosinophils # 0.0 (0-0.7) k/uL Basophils # 0.0 (0-0.2) k/uL Anisocytosis Slight Macrocytosis Slight PT (9.0-12.0) sec INR (<1.2) APTT (22.0-30.0) sec Sodium 127 L (137-145) mmol/L Potassium 5.8 H (3.5-5.1) mmol/L Chloride 102 (98-107) mmol/L Carbon Dioxide 19 L (22-30) mmol/L Anion Gap 6 mmol/L BUN 24 H (9-20) mg/dL Creatinine 1.05 (0.66-1.25) mg/dL Est GFR (CKD-EPI)AfAm 82 (>60 ml/min/1.73 sqM) Est GFR (CKD-EPI)NonAf 71 (>60 ml/min/1.73 sqM) Glucose 62 L (74-99) mg/dL Plasma Lactic Acid Jori 4.6 H* (0.7-2.0) mmol/L Calcium 7.7 L (8.4-10.2) mg/dL Phosphorus 4.3 (2.5-4.5) mg/dL Magnesium 1.9 (1.6-2.3) mg/dL Total Bilirubin 1.0 (0.2-1.3) mg/dL AST 47 (17-59) U/L ALT 23 (21-72) U/L Alkaline Phosphatase 228 H (38-126) U/L Ammonia 104 H (<30) umol/L Creatine Kinase 57 (55-170) U/L Troponin I (0.000-0.034) ng/mL Total Protein 5.3 L (6.3-8.2) g/dL Albumin 1.5 L (3.5-5.0) g/dL Amylase <30 L (30-110) U/L Lipase <10 L (23-300) U/L Blood Type Blood Type Recheck Antibody Screen Spec Expiration Date 12/11/18 12/11/18 12/11/18 Range/Units 11:52 11:52 11:52 WBC (3.8-10.6) k/uL RBC (4.30-5.90) m/uL Hgb (13.0-17.5) gm/dL Hct (39.0-53.0) % MCV (80.0-100.0) fL MCH (25.0-35.0) pg MCHC (31.0-37.0) g/dL RDW (11.5-15.5) % Plt Count (150-450) k/uL Neutrophils % % Lymphocytes % % Monocytes % % Eosinophils % % Basophils % % Neutrophils # (1.3-7.7) k/uL Lymphocytes # (1.0-4.8) k/uL Monocytes # (0-1.0) k/uL Eosinophils # (0-0.7) k/uL Basophils # (0-0.2) k/uL Anisocytosis Macrocytosis PT 19.4 H (9.0-12.0) sec INR 2.0 H (<1.2) APTT 40.5 H (22.0-30.0) sec Sodium (137-145) mmol/L Potassium (3.5-5.1) mmol/L Chloride (98-107) mmol/L Carbon Dioxide (22-30) mmol/L Anion Gap mmol/L BUN (9-20) mg/dL Creatinine (0.66-1.25) mg/dL Est GFR (CKD-EPI)AfAm (>60 ml/min/1.73 sqM) Est GFR (CKD-EPI)NonAf (>60 ml/min/1.73 sqM) Glucose (74-99) mg/dL Plasma Lactic Acid Jori (0.7-2.0) mmol/L Calcium (8.4-10.2) mg/dL Phosphorus (2.5-4.5) mg/dL Magnesium (1.6-2.3) mg/dL Total Bilirubin (0.2-1.3) mg/dL AST (17-59) U/L ALT (21-72) U/L Alkaline Phosphatase (38-126) U/L Ammonia (<30) umol/L Creatine Kinase (55-170) U/L Troponin I 0.020 (0.000-0.034) ng/mL Total Protein (6.3-8.2) g/dL Albumin (3.5-5.0) g/dL Amylase (30-110) U/L Lipase (23-300) U/L Blood Type A Positive Blood Type Recheck No Antibody Screen NEGATIVE Spec Expiration Date 12/14/2018 - 3551 - Radiology Data Radiology results: report reviewed (X-ray of abdomen pelvis chest x-ray positive for pneumonia), image reviewed Disposition Clinical Impression: SIRS (systemic inflammatory response syndrome), Pancytopenia due to antineoplastic chemotherapy, Dehydration, ARF (acute renal failure), Hyperammonemia, Pneumonia Disposition: ADMITTED IP TO THIS HOSP Condition: Critical Is patient prescribed a controlled substance at d/c from ED?: No Referrals: [facility],Clinic [Primary Care Provider] - 1-2 days
[2018-12-11 12:10] LABS: Anisocytosis Slight; Basophils % (A) 0 %; Eosinophils % (A) 1 %; HCT 37.5 % (39.0-53.0); HGB 12.1 gm/dL (13.0-17.5); Lymphocytes # (A) 0.3 k/uL (1.0-4.8); Lymphocytes % (A) 5 %; MCHC 32.3 g/dL (31.0-37.0); MCV 99.3 fL (80.0-100.0); Macrocytosis Slight; Mean Platelet Volume 7.9; Monocytes # (A) 0.5 k/uL (0-1.0); Monocytes % (A) 7 %; Neutrophils # (A) 5.6 k/uL (1.3-7.7); Neutrophils % (A) 87 %; Platelet Count 204 k/uL (150-450); RBC 3.77 m/uL (4.30-5.90); RDW 16.3 % (11.5-15.5); WBC 6.5 k/uL (3.8-10.6)
[2018-12-11 12:15] LABS: ALT 23 U/L (21-72); AST 47 U/L (17-59); Albumin 1.5 g/dL (3.5-5.0); Alkaline Phosphatase 228 U/L (38-126); Amylase <30 U/L (30-110); Anion Gap 6 mmol/L; Blood Urea Nitrogen 24 mg/dL (9-20); Calcium 7.7 mg/dL (8.4-10.2); Carbon Dioxide 19 mmol/L (22-30); Chloride 102 mmol/L (98-107); Creatine Kinase 57 U/L (55-170); Glucose 62 mg/dL (74-99); Lipase <10 U/L (23-300); Magnesium 1.9 mg/dL (1.6-2.3); Phosphorus 4.3 mg/dL (2.5-4.5); Potassium 5.8 mmol/L (3.5-5.1); Sodium 127 mmol/L (137-145); Total Protein 5.3 g/dL (6.3-8.2)
[2018-12-11 12:16] LABS: Partial Thromboplastin Time 40.5 sec (22.0-30.0); Prothrombin Time 19.4 sec (9.0-12.0)
[2018-12-11 12:28] LABS: Lactic Acid, Venous 4.6 mmol/L (0.7-2.0)
--- NOTE | 2018-12-11 14:04 | XR ---
EXAMINATION TYPE: XR abdomen acute w cxr DATE OF EXAM: 12/11/2018 COMPARISON: NONE HISTORY: Weakness, hypotension and tachycardia, pancreatic carcinoma TECHNIQUE: Supine, upright, and frontal view of the chest are obtained on 4 images. FINDINGS: Chest x-ray shows decreased lung volumes, there is blunting of the right costophrenic angl e, aorta is dense. There is no evidence for pneumoperitoneum. The bowel gas pattern is unremarkable as there is air throughout nondilated small and large bowel. No sizeable air fluid levels. No mass effects are seen. No unusual calcifications. Vas deferens calcifications present in the pelvis. Surgical clips present in the upper abdomen. IMPRESSION: Right lower lobe atelectasis and associated effusion, correlate to exclude pneumonia. Postop changes.
[2018-12-11] MEDS ORDERED: PIPERACILLIN-TAZOBACTAM 3.375 GM in SODIUM CHLORIDE 0.9% 100 ML IVPB STA (14:53)
[2018-12-11] MEDS: SODIUM CHLORIDE 0.9% 500 ML 500 ML IV SCH ×3 (15:53→23:17)
[2018-12-11 16:21] LABS: Appearance,Urine Cloudy (Clear); Bacteria,Urine Rare /hpf; Bilirubin,Urine 1+ (Negative); Blood,Urine Moderate (Negative); Color,Urine Dark Yellow; Glucose,Urine (UA) Negative (Negative); Hyaline Casts,Urine 40 /lpf (0-2); Ketones,Urine Trace (Negative); Leukocyte Esterase,Urine Small (Negative); Mucus,Urine Occasional /hpf; Nitrite,Urine Negative (Negative); PH, Urine 5.5 (5.0-8.0); Protein,Urine Trace (Negative); RBC,Urine 2 /hpf (0-5); Specific Gravity,Urine 1.025 (1.001-1.035); WBC,Urine 10 /hpf (0-5)
[2018-12-11] MEDS ORDERED: PROCHLORPERAZINE 10 MG TAB PO PRN (16:49)
[2018-12-11 20:37] VITALS: BMI 16.9
[2018-12-11] MEDS: METOPROLOL TARTRATE 25 MG TAB PO SCH (20:46)
[2018-12-11] MEDS: DOXAZOSIN 4 MG TAB PO SCH (20:48)
[2018-12-11] MEDS: FAMOTIDINE 20 MG TAB PO SCH (20:48)
[2018-12-11] MEDS: GABAPENTIN 100 MG CAP PO SCH (20:48)
[2018-12-11] MEDS: LACTULOSE 20 GM/30 ML CUP PO SCH (20:48)
[2018-12-11] MEDS: HYDROcodone/APAP 7.5-325MG 1 EACH TAB PO PRN (20:53)
[2018-12-11] MEDS: LEVOFLOXACIN 750MG-D5W PMX 750 MG in DEXTROSE/WATER 1 150ML.BAG IVPB SCH (21:41)
[2018-12-11 23:17] VITALS: RESP 20
[2018-12-11] MEDS: PIPERACILLIN-TAZOBACTAM 3.375 GM in SODIUM CHLORIDE 0.9% 100 ML IVPB SCH (23:20)
[2018-12-12] MEDS ORDERED: LIPASE 5,000/PROTEASE 17,000/AMYLASE 24,000 PO SCH (07:30)
[2018-12-12] MEDS ORDERED: PANTOPRAZOLE 40 MG TABLET PO SCH (07:30)
[2018-12-12] MEDS: PIPERACILLIN-TAZOBACTAM 3.375 GM in SODIUM CHLORIDE 0.9% 100 ML IVPB SCH ×3 (08:18→22:28)
[2018-12-12] MEDS: LACTULOSE 20 GM/30 ML CUP PO SCH ×2 (08:20→20:02)
[2018-12-12] MEDS: METOPROLOL TARTRATE 25 MG TAB PO SCH ×2 (08:20→19:56)
[2018-12-12] MEDS: GABAPENTIN 100 MG CAP PO SCH ×2 (08:20→20:00)
[2018-12-12] MEDS ORDERED: FINASTERIDE 5 MG TAB PO SCH (09:00)
[2018-12-12] MEDS ORDERED: ALLOPURINOL 300 MG TAB PO SCH (09:00)
[2018-12-12] MEDS ORDERED: MULTIVITAMINS, THERA 1 EACH TAB PO SCH (09:00)
[2018-12-12] MEDS ORDERED: MAGNESIUM OXIDE 400 MG TAB PO SCH (12:00)
[2018-12-12] MEDS: HYDROcodone/APAP 7.5-325MG 1 EACH TAB PO PRN (12:13)
--- NOTE | 2018-12-12 14:44 | P.HPIM ---
History of Present Illness H&P Date: 12/11/18 Chief Complaint: Weakness 72-year-old male the ER for evaluation. Patient presents for weakness. Patient was scheduled to have ascites drained today was unable to make it to appointments secondary to severe weakness unable to get out of bed. Patient has generalized pain very weak. History obtained from EMS. Patient very weak, somnolent. Patient does admit to being a DO NOT RESUSCITATE Workup in ED was significant for pneumonia and acute renal failure along with pancytopenia; patient is being admitted to the hospital for further treatment Review of Systems Constitutional: Reports anorexia, Denies chills, Denies fever Eyes: denies blurred vision Ears, nose, mouth and throat: Reports hoarseness, Denies epistaxis Cardiovascular: Reports shortness of breath, Denies chest pain Respiratory: Denies congestion Gastrointestinal: Reports abdominal pain, Reports nausea, Reports vomiting Genitourinary: Denies dysuria, Denies hematuria Musculoskeletal: Reports atrophy, Reports leg numbness/tingling, Reports myalgias Past Medical History Past Medical History: Cancer, Deep Vein Thrombosis (DVT), Hypertension Additional Past Medical History / Comment(s): PANCREATIC CANCER-most recent [facility] tx was 08-18-18,states current sinus infection, past prostate cancer 12 years ago,squamous cell skin ca (sx) 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) pt stated "does'nt have gerd was put on rx as preventative" History of Any Multi-Drug Resistant Organisms: None Reported Past Surgical History: Orthopedic Surgery Additional Past Surgical History / Comment(s): tumor from pancreas removed 04/2018 at [facility], WHIPPLE PROCEDURE, ERCP with stent, squaomous cell skin ca removed from frederic ears, left thumb amputated and reattached, multiple p aracentesis(states every 9 days) Past Anesthesia/Blood Transfusion Reactions: No Reported Reaction Additional Past Anesthesia/Blood Transfusion Reaction / Comment(s): pt stated has never received any blood transfusion in past Smoking Status: Never smoker - Past Family History Mother Family Medical History: Diabetes Mellitus Additional Family Medical History / Comment(s): gout Father Additional Family Medical History / Comment(s): had TB Medications and Allergies Home Medications Medication Instructions Recorded Confirmed Type Apixaban [Eliquis] 5 mg PO BID 08/21/18 12/11/18 History Finasteride [Proscar] 5 mg PO DAILY 08/21/18 12/11/18 History Gabapentin [Neurontin] 200 mg PO BID 08/21/18 12/11/18 History Metoprolol Tartrate 25 mg PO BID 08/21/18 12/11/18 History Pantoprazole [Protonix] 40 mg PO DAILY 08/21/18 12/11/18 History Terazosin [Hytrin] 6 mg PO HS 08/21/18 12/11/18 History Allopurinol [Zyloprim] 300 mg PO DAILY 12/11/18 12/11/18 History HYDROcodone/APAP 7.5-325MG [[place] 1 tab PO Q4H PRN 12/11/18 12/11/18 History 7.5-325] Lipase/Protease/Amylase [Zenpep Dr 2 cap PO DAILY 12/11/18 12/11/18 History 5,000 Unit Capsule] Magnesium Gluconate [Magonate] 500 mg PO DAILY 12/11/18 12/11/18 History Multivitamins, Thera [Multivitamin 1 tab PO DAILY 12/11/18 12/11/18 History (formulary)] Prochlorperazine Maleate 10 mg PO Q6H PRN 12/11/18 12/11/18 History Ranitidine HCl 150 mg PO HS 12/11/18 12/11/18 History Allergies Allergy/AdvReac Type Severity Reaction Status Date / Time No Known Allergies Allergy Verified 12/11/18 11:56 Physical Exam Vitals: Vital Signs Temp Pulse Pulse Resp BP Pulse Ox 12/11/18 16:00 96/53 12/11/18 15:00 110 H 14 89/45 96 12/11/18 14:00 116 H 16 93/53 96 12/11/18 13:00 89/49 12/11/18 12:21 120 H 12/11/18 12:13 112 H 22 77/47 97 12/11/18 11:22 97 12/11/18 10:52 97.6 F 122 H 20 80/47 Intake and Output 12/11/18 12/11/18 12/11/18 06:59 14:59 22:59 Other: Weight 52.163 kg General appearance: alert, lethargic, in distress Head exam: Present: atraumatic, normocephalic, normal inspection Eye exam: Present: normal appearance, PERRL, EOMI. Absent: scleral icterus, conjunctival injection, periorbital swelling ENT exam: Present: normal exam, mucous membranes moist Neck exam: Present: normal inspection. Absent: tenderness, meningismus, lymphadenopathy Respiratory exam: Present: normal lung sounds bilaterally. Absent: respiratory distress, wheezes, rales, rhonchi, stridor Cardiovascular Exam: Present: normal rhythm, tachycardia, normal heart sounds. Absent: systolic murmur, diastolic murmur, rubs, gallop, clicks GI/Abdominal exam: Present: soft, normal bowel sounds. Absent: distended, tenderness, guarding, rebound, rigid Extremities exam: Present: normal inspection, full ROM, normal capillary refill. Absent: tenderness, pedal edema, joint swelling, calf tenderness Back exam: Present: normal inspection Neurological exam: Present: alert, oriented X3, CN II-XII intact Psychiatric exam: Present: normal affect, normal mood Skin exam: Present: warm, dry, intact, normal color. Absent: rash Results CBC & Chem 7: 12/11/18 11:52 12/11/18 11:52 Labs: Abnormal Lab Results - Last 24 Hours (Table) 12/11/18 12/11/18 12/11/18 Range/Units 11:52 11:52 11:52 RBC 3.77 L (4.30-5.90) m/uL Hgb 12.1 L (13.0-17.5) gm/dL Hct 37.5 L (39.0-53.0) % RDW 16.3 H (11.5-15.5) % Lymphocytes # 0.3 L (1.0-4.8) k/uL PT (9.0-12.0) sec INR (<1.2) APTT (22.0-30.0) sec Sodium 127 L (137-145) mmol/L Potassium 5.8 H (3.5-5.1) mmol/L Carbon Dioxide 19 L (22-30) mmol/L BUN 24 H (9-20) mg/dL Glucose 62 L (74-99) mg/dL Plasma Lactic Acid Jori 4.6 H* (0.7-2.0) mmol/L Calcium 7.7 L (8.4-10.2) mg/dL Alkaline Phosphatase 228 H (38-126) U/L Ammonia 104 H (<30) umol/L Total Protein 5.3 L (6.3-8.2) g/dL Albumin 1.5 L (3.5-5.0) g/dL Amylase <30 L (30-110) U/L Lipase <10 L (23-300) U/L Urine Protein (Negative) Urine Ketones (Negative) Urine Blood (Negative) Urine Bilirubin (Negative) Ur Leukocyte Esterase (Negative) Urine WBC (0-5) /hpf Urine Bacteria (None) /hpf Hyaline Casts (0-2) /lpf Urine Mucus (None) /hpf 12/11/18 12/11/18 12/11/18 Range/Units 11:52 15:36 16:00 RBC (4.30-5.90) m/uL Hgb (13.0-17.5) gm/dL Hct (39.0-53.0) % RDW (11.5-15.5) % Lymphocytes # (1.0-4.8) k/uL PT 19.4 H (9.0-12.0) sec INR 2.0 H (<1.2) APTT 40.5 H (22.0-30.0) sec Sodium (137-145) mmol/L Potassium (3.5-5.1) mmol/L Carbon Dioxide (22-30) mmol/L BUN (9-20) mg/dL Glucose (74-99) mg/dL Plasma Lactic Acid Jori 4.9 H* (0.7-2.0) mmol/L Calcium (8.4-10.2) mg/dL Alkaline Phosphatase (38-126) U/L Ammonia (<30) umol/L Total Protein (6.3-8.2) g/dL Albumin (3.5-5.0) g/dL Amylase (30-110) U/L Lipase (23-300) U/L Urine Protein Trace H (Negative) Urine Ketones Trace H (Negative) Urine Blood Moderate H (Negative) Urine Bilirubin 1+ H (Negative) Ur Leukocyte Esterase Small H (Negative) Urine WBC 10 H (0-5) /hpf Urine Bacteria Rare H (None) /hpf Hyaline Casts 40 H (0-2) /lpf Urine Mucus Occasional H (None) /hpf Assessment and Plan Assessment: 1. Sirs; patient is started on IV antibiotics; ID is consulted and recommendations are pending 2. Pneumonia - Patient is started on IV Zosyn and Levaquin with pharmacy dosing service - Blood culture, urine culture and sputum culture is ordered - We will adjust antibiotic therapy according to culture results 3. Acute renal failure/dehydration - Patient remains on IV fluid hydration; we will monitor renal function and electrolytes; creatinine is trending down slowly at this time - We will avoid nephrotoxins and hypotension; monitor renal function and electrolytes closely 4. Pancytopenia secondary to anti-neoplastic chemotherapy; monitor CBC 5. Hyperammonemia; we will continue with lactulose 30 g by mouth twice a day - Monitor ammonia levels closely 6. Acute respiratory distress secondary to ascites; IR is consulted for possible paracentesis 7. DVT prophylaxis; SCDs only CODE STATUS; DO NOT RESUSCITATE Time with Patient: Greater than 30
--- NOTE | 2018-12-12 14:47 | P.PN ---
Subjective Progress Note Date: 12/12/18 Principal diagnosis: Pneumonia SIRS syndrome Ascites 72-year-old male the ER for evaluation. Patient presents for weakness. Patient was scheduled to have ascites drained today was unable to make it to appointments secondary to severe weakness unable to get out of bed. Patient has generalized pain very weak. History obtained from EMS. Patient very weak, somnolent. Patient does admit to being a DO NOT RESUSCITATE 12/12/2018 Patient is seen and evaluated in the room with multiple family members at bedside; patient has been quite weak and hypotensive; IV fluids are running; hospice care has been consulted by ED and is pending; per family members patient's son Isauro is decision-making person and will arrive to the hospital sometime this afternoon Objective - Vital Signs Vital signs: Vital Signs Temp 97.3 F L 12/12/18 12:00 Pulse 120 H 12/12/18 12:00 Resp 20 12/12/18 12:00 BP 81/38 12/12/18 12:00 Pulse Ox 95 12/12/18 12:00 Intake & Output 12/11/18 12/12/18 12/12/18 18:59 06:59 18:59 Intake Total 710 120 Output Total 400 Balance 310 120 Weight 52.163 kg 69.5 kg Intake: Amount of Fluid Infused ( 700 ml) Oral 10 120 Output: Urine 400 Straight 200 Other: # Voids 1 1 - Exam PHYSICAL EXAMINATION: GENERAL: The patient is alert and oriented x3, not in any acute distress. Well developed, well nourished. HEENT: Pupils are round and equally reacting to light. EOMI. No scleral icterus. No conjunctival pallor. Normocephalic, atraumatic. No pharyngeal erythema. No thyromegaly. CARDIOVASCULAR: S1 and S2 present. No murmurs, rubs, or gallops. PULMONARY: Chest is clear to auscultation, no wheezing or crackles. ABDOMEN: Soft, nontender, nondistended, normoactive bowel sounds. No palpable organomegaly. MUSCULOSKELETAL: No joint swelling or deformity. EXTREMITIES: No cyanosis, clubbing, or pedal edema. NEUROLOGICAL: Gross neurological examination did not reveal any focal deficits. SKIN: No rashes. - Labs CBC & Chem 7: 12/11/18 11:52 12/11/18 11:52 Labs: Abnormal Lab Results - Last 24 Hours (Table) 12/11/18 12/11/18 Range/Units 15:36 16:00 Plasma Lactic Acid Jori 4.9 H* (0.7-2.0) mmol/L Urine Protein Trace H (Negative) Urine Ketones Trace H (Negative) Urine Blood Moderate H (Negative) Urine Bilirubin 1+ H (Negative) Ur Leukocyte Esterase Small H (Negative) Urine WBC 10 H (0-5) /hpf Urine Bacteria Rare H (None) /hpf Hyaline Casts 40 H (0-2) /lpf Urine Mucus Occasional H (None) /hpf Microbiology - Last 24 Hours (Table) 12/11/18 16:00 Urine Culture - Preliminary Urine,Catheterized Assessment and Plan Assessment: 1. Sirs; patient is started on IV antibiotics; ID is consulted and recommendations are pending 2. Pneumonia - Patient is started on IV Zosyn and Levaquin with pharmacy dosing service - Blood culture, urine culture and sputum culture is ordered - We will adjust antibiotic therapy according to culture results 3. Acute renal failure/dehydration - Patient remains on IV fluid hydration; we will monitor renal function and electrolytes; creatinine is trending down slowly at this time - We will avoid nephrotoxins and hypotension; monitor renal function and electrolytes closely 4. Pancytopenia secondary to anti-neoplastic chemotherapy; monitor CBC 5. Hyperammonemia; we will continue with lactulose 30 g by mouth twice a day - Monitor ammonia levels closely 6. Acute respiratory distress secondary to ascites; IR is consulted for possible paracentesis 7. DVT prophylaxis; SCDs only CODE STATUS; DO NOT RESUSCITATE Time with Patient: Greater than 30
[2018-12-12] MEDS: MORPHINE ORAL SOLN 10 MG/5 ML CUP PO PRN ×2 (15:11→19:58)
[2018-12-12] MEDS: LEVOFLOXACIN 750MG-D5W PMX 750 MG in DEXTROSE/WATER 1 150ML.BAG IVPB SCH (15:51)
[2018-12-12] MEDS: FAMOTIDINE 20 MG TAB PO SCH (20:01)
[2018-12-12] MEDS: DOXAZOSIN 4 MG TAB PO SCH (20:01)
[2018-12-12 22:43] VITALS: PULSE 125; TEMP 97.6
[2018-12-12 22:50] VITALS: BP 75/40
[2018-12-13] MEDS: MORPHINE ORAL SOLN 10 MG/5 ML CUP PO PRN (01:07)
== END 2018-12-13 01:33 | disposition hospice, inpatient (51) | DRG 193 ==
LOC: EC 10:50 → 3NMEDONC 14:57 → 3SCARD 19:50
PROVIDERS: ADMIT Hospitalist; ATTEND Hospitalist
DX: J18.9 Pneumonia, unspecified organism (principal); D61.810 Antineoplastic chemotherapy induced pancytopenia; E72.20 Disorder of urea cycle metabolism, unspecified; N17.9 Acute kidney failure, unspecified; R18.8 Other ascites; E86.0 Dehydration; I10 Essential (primary) hypertension; K21.9 Gastro-esophageal reflux disease without esophagitis; T45.1X5A Adverse effect of antineoplastic and immunosuppressive drugs, initial encounter; Z66 Do not resuscitate; Z51.5 Encounter for palliative care; R06.03 Acute respiratory distress; Z79.01 Long term (current) use of anticoagulants; Z79.899 Other long term (current) drug therapy; Z83.3 Family history of diabetes mellitus; Z85.07 Personal history of malignant neoplasm of pancreas; Z85.46 Personal history of malignant neoplasm of prostate; Z85.828 Personal history of other malignant neoplasm of skin
CPT/HCPCS: 36415; 74022; 80053; 81001; 82140; 82150; 82550; 83605; 83690; 83735; 84100; 84484; 85025; 85610; 85730; 86850; 86900; 86901; 87086; 93005; 96361; 96365; 96366; 99285

== ENCOUNTER 2018-12-13 01:37 | Inpatient (IN) | payer MEDICAID ==
[2018-12-13 09:42] VITALS: BMI 23.4
[2018-12-13] MEDS ORDERED: LORazepam 1 MG TAB PO PRN (09:46)
[2018-12-13] MEDS ORDERED: DOCUSATE 100 MG CAP PO PRN (09:51)
[2018-12-13] MEDS ORDERED: ONDANSETRON 4 MG TAB PO PRN (09:52)
[2018-12-13] MEDS: ATROPINE OPHTH SOLN 1% 5ML BTL SUBLINGUAL SCH ×3 (10:34→21:02)
[2018-12-13] MEDS: MORPHINE ORAL SOLN 10 MG/5 ML CUP PO PRN ×3 (10:35→22:23)
[2018-12-13 21:24] VITALS: RESP 12
--- NOTE | 2018-12-14 01:50 | P.PN ---
Subjective Progress Note Date: 12/13/18 Principal diagnosis: Pancreatic CA 72-year-old male patient was admitted to the hospital with failure to thrive and worsening respiratory status; patient was admitted with pneumonia; respiratory distress secondary to worsening ascites; patient and family were recommended hospice care; patient is admitted to hospice for pain and symptom management Objective - Vital Signs Vital signs: Vital Signs Temp Pulse Resp 16 12/13/18 12:00 BP Pulse Ox Intake & Output 12/12/18 12/13/18 12/13/18 18:59 06:59 18:59 Weight 73 kg - Exam patient is unresponsive to any stimuli Assessment and Plan Assessment: 1. Pancreatic CA 2. Pneumonia 3. Acute respiratory failure 4. Ascites Patient is admitted to hospice for pain and symptom management
== END 2018-12-14 05:57 | disposition expired | DRG 951 ==
LOC: 3SCARD 01:37
PROVIDERS: ADMIT Hospitalist; ATTEND Hospitalist
DX: Z51.5 Encounter for palliative care (principal); J18.9 Pneumonia, unspecified organism; J96.00 Acute respiratory failure, unspecified whether with hypoxia or hypercapnia; C25.9 Malignant neoplasm of pancreas, unspecified; R18.8 Other ascites; R62.7 Adult failure to thrive